=== PATIENT | female | born 1940 | race Caucasian/White ===

== ENCOUNTER 2024-02-18 19:00 | Emergency (ER) | payer MEDICARE, SELFPAY ==
[2024-02-18 19:07] VITALS: BP 121/66; BMI 22.0
[2024-02-18 19:24] LABS: Mean Corpuscular Volume 87.9 fL (81.0-99.0); Nucleated Red Blood Cells % 0 %
[2024-02-18 19:26] LABS: % Eosinophils 6.1 % (0-6); % Immature Granulocytes 0.5 % (0-0.5); % Monocytes 10.7 % (1.7-9.3); % Neutrophils 71.7 % (42.2-75.2); Absolute Basophils 0.1 10^3/uL (0-0.2); Absolute Eosinophils 0.6 10^3/uL (0-0.7); Absolute Immature Granulocytes 0.1 10^3/uL (0-0.05); Absolute Monocytes 1.1 10^3/uL (0.1-0.6); Hematocrit 31.3 % (37.0-47.0); Mean Corp Hgb Conc. 31.9 g/dL (33.0-37.0); Mean Corpuscular Hgb 28.1 pg (27.0-31.0); Mean Platelet Volume 10.3 fL (7.4-10.4); Platelet Count 212 10^3/uL (130-400); Red Blood Cell Count 3.56 10^6/uL (4.20-5.40); Red Cell Dist. Width 16.6 % (11.5-14.5); White Blood Cell Count 9.8 10^3/uL (4.8-10.8)
[2024-02-18 19:45] LABS: ALT (SGPT) < 10 U/L (0-35); AST (SGOT) 19 U/L (14-36); Albumin 4.2 g/dl (3.5-5.0); Alkaline Phosphatase 134 U/L (38-126); Blood Urea Nitrogen 65 mg/dl (7-17); Calcium 7.8 mg/dl (8.4-10.2); Carbon Dioxide 22 mmol/L (22-30); Chloride 92 mmol/L (98-107); Estimated Creatinine Clearance 5 ml/min; Glucose 133 mg/dl (70-99); Lipase 88 U/L (23-300); Potassium 5.2 mmol/L (3.5-5.1); Sodium 130 mmol/L (135-145); Total Bilirubin 0.4 mg/dl (0.2-1.3); Total Protein 6.4 g/dl (6.3-8.2); eGFR 5.41
--- NOTE | 2024-02-18 21:47 | PHANOTE ---
med rec fernando(02/18/24)- patient's spouse does not know the strength of the memantine, but he does give 1 tablet twice a day to spouse. eCW and pharmacy records state that patient is taking 5 mg BID, but spouse cannot confirm.
--- NOTE | 2024-02-19 01:08 | ED.GENMED ---
History of Present Illness
General
Chief Complaint: Abdominal Pain
Source: patient and spouse
Time Seen by Provider: 02/18/24 22:01
History of Present Illness
History of Present Illness:
84-year-old female presents to the emergency room for evaluation of abdominal pain. Patient states that she began having abdominal pain earlier today and started fairly suddenly. Pain located on the right lower abdomen. No nausea or vomiting. No
fever. Patient does not make any urine as she has end-stage renal disease and is on hemodialysis. Her dialysis days are Friday, and Friday. Patient had decreased appetite for dinner.
Past History
Past History
ED Past Medical History: Cancer (Left kidney Sine, ), CHF, GERD, HTN, Hypercholesterolemia, Renal failure (on HD /), Seizures, Psychiatric (Depression), Other (Alzheimer but patient is alert and able to answer questions. Sleep apnea but lost
weight and now gone Renal artery Aneurysm, Pul edema, Diverticulitis) and Other (GI bleeding Iron def. anemia, ); Negative CAD
ED Past Surgical History: Cholecystectomy, , Gynecological (Hysterectomy), Orthopedic (Dennis hip and knee replacements), Urological and Other (Cataracts)
Patient has exhibited threatening behavior?: No
PSI?: No
Social History
Tobacco: Non-smoker
Alcohol: Occasional
Drug: None
Personal:
Living: with family
Employment: Retired
Family History
Family History: Hypertension
Phy Exam
Physical Exam
Physical Exam:
General: Awake, Alert, Oriented X3. No acute distress.
Vitals: unremarkable
Head: Atraumatic
Eyes: Pupils equal, EOMI
Throat: Airway intact, no exudates
Neck: Trachea midline
Lungs: Clear and equal b/l
Heart: Regular rate, no murmurs
Abd: Soft, Nontender, No pulsatile mass
Back: No CVA tenderness to percussion
Neuro: Grossly nonfocal
Skin: Warm, dry, no rash
Extremities: pulses equal b/l, no edema
Course
Orders/Labs/Results
Orders:
Orders
02/18/24 19:09
Electrocardiogram (*1) Urgent
Reason for Study: Chest Pain
EKG- Treatment ONCE
02/18/24 19:17
Complete Blood Count/With Diff Urgent
Comprehensive Metabolic Panel Urgent
Lipase Urgent
02/18/24 22:45
CT Abd/pelvis Wo Iv Cont Urgent
Reason For Exam: rlq pain
Abnormal Lab Results
02/18/24
19:17
RBC 3.56 L 10^6/uL
(4.20-5.40)
Hgb 10.0 L g/dL
(12.0-16.0)
Hct 31.3 L %
(37.0-47.0)
MCHC 31.9 L g/dL
(33.0-37.0)
RDW 16.6 H %
(11.5-14.5)
Abs Immat Gran (auto) 0.1 H 10^3/uL
(0-0.05)
Absolute Neuts (auto) 7.0 H 10^3/uL
(1.4-6.5)
Absolute Lymphs (auto) 1.0 L 10^3/uL
(1.2-3.4)
Absolute Monos (auto) 1.1 H 10^3/uL
(0.1-0.6)
Lymphocytes % 10.0 L %
(20.5-51.1)
Monocytes % 10.7 H %
(1.7-9.3)
Eosinophils % 6.1 H %
(0-6)
Sodium 130 L mmol/L
(135-145)
Potassium 5.2 H mmol/L
(3.5-5.1)
Chloride 92 L mmol/L
(98-107)
BUN 65 H mg/dl
(7-17)
Creatinine 7.0 H* mg/dL
(0.6-1.0)
Glucose 133 H mg/dl
(70-99)
Calcium 7.8 L mg/dl
(8.4-10.2)
Alkaline Phosphatase 134 H U/L
(38-126)
02/18/24 19:17
02/18/24 19:17
Vital Signs
Initial and Last Documented VS:
Initial Vital Signs
Temp Pulse Resp BP Pulse Ox
98.1 F 84 16 121/66 96
02/18/24 19:07 02/18/24 19:07 02/18/24 19:07 02/18/24 19:07 02/18/24 19:07
Last Documented Vital Signs
Temp Pulse Resp BP Pulse Ox
98.1 F 84 16 121/66 96
02/18/24 19:07 02/18/24 19:07 02/18/24 19:07 02/18/24 19:07 02/18/24 22:45
MDM/Problems Addressed
Differential Diagnosis Includes:
Appendicitis, diverticulitis, intestinal colic
MDM/Problems Addressed:
Patient presents after having abdominal pain earlier today. Pain started suddenly. At the time I evaluated the patient her pain had resolved. Her exam is benign. CT obtained IV infiltrated during the imaging send of IV contrast was administered.
However there is no obvious abnormality. Patient reexamined after CAT scan and she continues to have no abdominal pain. At this point patient stable for discharge. Potassium mildly elevated at 5.2 but she is scheduled for dialysis tomorrow.
*Radiology
Radiology exam reviewed: radiology read reviewed
*Pulse Oximetry
Patient hypoxic: no
*EKG
Interpretation: normal
Heart Rate: 83
Rate: normal
Rhythm: sinus
[place]: normal axis
Interval: normal interval
QRS Pattern: normal QRS
Ischemia: no ischemia
*Exotic Dancer Interpretation
Rate: normal
Interpretation: normal
Rhythm: sinus
*Critical Care Note
Total Time (30-74mins, 75-104mins- exclusive of procedures): Not Applicable
ED Attending Note
-
Portions of this chart may have been created with voice recognition software.� Occasional wrong word or��sound alike� substitutions may have occurred due to the inherent limitations of voice recognition software.
Discharge Plan
Departure
Patient Disposition: Home (Routine Discharge)
Date of Disposition: 02/19/24
Time of Disposition: 01:08
Patient with high blood pressure during this ER visit?: No
Condition: Good
Discharge Problem:
Abdominal pain
Instructions: Abdominal Pain
Prescriptions:
No Action
atorvastatin 20 MG tablet
20 mg PO HS
pantoprazole 40 MG tablet,delayed release (DR/EC)
40 mg PO DAILY
acetaminophen [Tylenol Extra Strength] 500 mg Tablet
1,000 mg PO BIDPRN PRN (Reason: mild pain)
mirtazapine 15 mg Tablet
15 mg PO HS
sevelamer carbonate 800 mg Tablet
800 mg PO AC
cholecalciferol (vitamin D3) 50 mcg (2,000 unit) Tablet
50 mcg PO HS
memantine 5 mg Tablet
5 mg PO BID
Patient Comments:
02/18/24: spouse is unsure of strength, last filled on 09/10/23 for 180 tablets
carvedilol 12.5 mg Tablet
12.5 mg PO SUMOWEFR@0800,1800
carvedilol 12.5 mg Tablet
12.5 mg PO TUTHSA@1800
Referrals:
Padmini Thompson MD [Family Provider] -
Activity Restrictions/Additional Instructions:
Your blood work and CAT scan showed no significant abnormalities. Please follow your primary care doctor. Return for any concerns.
Interventions
Interventions:
*Risk Screen - Suicide Last Done: 02/18/24 19:07
*General Assessment Last Done: 02/18/24 22:45
*Neglect/Abuse Screening Last Done: 02/18/24 19:07
ED- Fall Risk Assessment Last Done: 02/18/24 19:07
*ED COVID-19 Vaccine History Last Done: 02/18/24 22:45
YF-Ibsxwc-Vbkxqrlcwu Assessment Last Done: 02/18/24 22:45
Discharge Date and Time
Print Language: MALDIVIAN
[2024-02-19 01:14] VITALS: BP 118/68
== END 2024-02-19 01:18 | disposition home or self-care (01) ==
LOC: EMR 19:00
PROVIDERS: Emergency Medicine; EMERGENCY PHYSICIAN Emergency Medicine; FAMILY PHYSICIAN Family Medicine
DX: R10.9 Unspecified abdominal pain (principal)
CPT/HCPCS: 99285; 74176; 80053; 83690; 85025; 93005

== ENCOUNTER 2024-02-22 21:41 | Observation (INO) | payer MEDICARE, SELFPAY ==
[2024-02-22 18:30] VITALS: BP 155/91
--- NOTE | 2024-02-22 18:58 | ED.GENMED ---
History of Present Illness
General
Chief Complaint: Rectal Bleeding
Source: patient
Exam Limitations: none
Time Seen by Provider: 02/22/24 18:40
Nursing documentation reviewed up to this point in time: agreed with
History of Present Illness
History of Present Illness:
Pleasant 84-year-old female that presents with bleeding per rectum. She states that this afternoon, the bleeding started. Patient states that it has been coming out quickly with clotting present. Denies any abdominal pain. Denies fever, chills,
nausea or vomiting. Patient does have a history of Alzheimer's disease but thus far has been a great historian.
Past History
Past History
ED Past Medical History: Cancer (Left kidney Sine, ), CHF, GERD, HTN, Hypercholesterolemia, Renal failure (on HD //), Seizures, Psychiatric (Depression), Other (Alzheimer but patient is alert and able to answer questions. Sleep apnea but lost
weight and now gone Renal artery Aneurysm, Pul edema, Diverticulitis) and Other (GI bleeding Iron def. anemia, ); Negative CAD
ED Past Surgical History: Cholecystectomy, , Gynecological (Hysterectomy), Orthopedic (Dennis hip and knee replacements), Urological and Other (Cataracts)
Patient has exhibited threatening behavior?: No
PSI?: No
Social History
Tobacco: Non-smoker
Alcohol: Occasional
Drug: None
Personal:
Living: with family
Employment: Retired
Family History
Family History: Hypertension
Phy Exam
General Physical Exam
General Presentation: well appearing and no apparent distress
General Skin: warm and dry
General Habitus: normal
General Mental: alert
General Hydration: appears well hydrated
ENT Exam
ENT Exam: EOMI, pharynx normal, neck supple and normocephalic
Eye Exam
Eye Exam: PERRL, cornea clear and conjunctiva normal
Cardiovascular Exam
Cardiovascular Exam: regular rate/rhythm, no edema, no murmur and normal peripheral pulses
Pulmonary Exam
Pulmonary Exam: lungs clear, no respiratory distress, no rales, no crackles, no rhonchi, no stridor, no wheezing and no cough
Gastrointestinal Exam
Gastrointestinal Exam: normal bowel sounds, non tender, soft and non distended
Rectal Exam: soft stool
Stool: currant jelly and maroon
Guaiac Status: grossly bloody - positive and positive
Neurological Exam
Neurological Exam: alert
Musculoskeletal Exam
Musculoskeletal Exam: full ROM and no edema
Skin Exam
Skin Exam: normal color, warm/dry, no rash and no petechia
Psychiatric Exam
Psychiatric Exam: normal mood/affect
Course
Orders/Labs/Results
Orders:
Orders
02/22/24 18:54
Cardiac Monitoring- Treatment ONCE
Vital Signs- Treatment ONCE
Frequency: Hourly
Octreotide [Sandostatin] 50 mcg IV NOW STA
Pantoprazole 80 mg/100 ml Nss [Protonix] 80 mg in 100 ml IV NOW
Pantoprazole [Protonix IV] 80 mg IV NOW STA
02/22/24 18:55
IV Insert/Care/Rem.- Treatment PRN
02/22/24 18:57
Electrocardiogram (*1) Stat
Reason for Study: Other
Other Reason for Exam: GI Bleed
EKG- Treatment ONCE
02/22/24 19:21
Type And Crossmatch Urgent
Comprehensive Metabolic Panel Urgent
Lipase Urgent
PTT Urgent
Prothrombin Time Urgent
02/22/24 20:19
Complete Blood Count/With Diff Urgent
02/22/24 21:03
Admit/Transfer Patient As Directed
Co-Sign Provider:
Level of Care: Observation services
Assign to:: Medical/Surgical
Physician / Group: Getachew
Diagnosis: GI bleed
Abnormal Lab Results
02/22/24 02/22/24
19:21 20:19
RBC 3.08 L 10^6/uL
(4.20-5.40)
Hgb 8.7 L g/dL
(12.0-16.0)
Hct 27.4 L %
(37.0-47.0)
MCHC 31.8 L g/dL
(33.0-37.0)
RDW 15.9 H %
(11.5-14.5)
Absolute Lymphs (auto) 0.9 L 10^3/uL
(1.2-3.4)
Absolute Monos (auto) 0.9 H 10^3/uL
(0.1-0.6)
Lymphocytes % 12.8 L %
(20.5-51.1)
Monocytes % 13.0 H %
(1.7-9.3)
Sodium 128 L mmol/L
(135-145)
Chloride 90 L mmol/L
(98-107)
BUN 39 H mg/dl
(7-17)
Creatinine 5.0 H* mg/dL
(0.6-1.0)
Calcium 8.3 L mg/dl
(8.4-10.2)
Total Protein 5.9 L g/dl
(6.3-8.2)
02/22/24 20:19
02/22/24 19:21
Vital Signs
Initial and Last Documented VS:
Initial Vital Signs
Temp Pulse Resp BP
97.7 F 81 18 155/91
02/22/24 18:30 02/22/24 18:30 02/22/24 18:30 02/22/24 18:30
Last Documented Vital Signs
Temp Pulse Resp BP Pulse Ox
97.7 F 81 18 144/98 100
02/22/24 18:30 02/22/24 18:30 02/22/24 18:30 02/22/24 20:00 02/22/24 20:45
MDM/Problems Addressed
Differential Diagnosis Includes:
Upper GI bleed, lower GI bleed, hemorrhoid
MDM/Problems Addressed:
84-year-old female with spontaneous rectal bleeding. On rectal exam there were clots which were heme positive.
Chronic conditions affecting care:
Chronic kidney disease, dementia, memory loss, epilepsy, sleep apnea though she refuses CPAP, high blood pressure hyperlipidemia, GI bleed, hemorrhoids, renal failure, iron deficiency anemia
Chronic conditions affecting care: DM, HTN and Kidney disease (Dialysis Friday. Dr. Lopez)
*Critical Care Note
Total Time (30-74mins, 75-104mins- exclusive of procedures): 35
comment:
Critical care statement: A total of 35 minutes of critical care time was provided for this patient. This time is separate from time utilized to perform the aforementioned documented procedures. Aggregate critical care time includes only time
during which I was engaged in work directly related to the patient's care, as described above, whether at the bedside or elsewhere in the Emergency Department.
Data Reviewed
Review of Other/Old Records Reveals: Labs and Records
Source: patient, records and family
Patient Management
Social determinants of health affecting care: Living situation and Strong social support
Discussion with other providers: Hospitalist and Machine Shop Worker ([place] texted gastroenterology so they are aware)
Escalation/DeEscalation of care consider admission/obs:
Patient to be admitted to the hospital.
Update Note
Update Note:
Blood consent signed by patient and and is on the chart.
Hemoglobin 8.7. Bleeding seem to have slowed down. Patient to be admitted to the hospitalist service.
ED Attending Note
-
Portions of this chart may have been created with voice recognition software.� Occasional wrong word or��sound alike� substitutions may have occurred due to the inherent limitations of voice recognition software.
Discharge Plan
Departure
Patient Disposition: Admit
Date of Disposition: 02/22/24
Time of Disposition: 20:51
Admit to: Telemetry
Presentation/result/management discussed w/ accepting MD/DO: Hospitalist
Discharge Problem:
Rectal bleeding, ESRD on hemodialysis, Anemia of chronic disease, GERD (gastroesophageal reflux disease)
Prescriptions:
No Action
atorvastatin 20 MG tablet
20 mg PO HS
pantoprazole 40 MG tablet,delayed release (DR/EC)
40 mg PO DAILY
acetaminophen [Tylenol Extra Strength] 500 mg Tablet
1,000 mg PO BIDPRN PRN (Reason: mild pain)
mirtazapine 15 mg Tablet
15 mg PO HS
sevelamer carbonate 800 mg Tablet
800 mg PO AC
cholecalciferol (vitamin D3) 50 mcg (2,000 unit) Tablet
50 mcg PO HS
memantine 5 mg Tablet
5 mg PO BID
Patient Comments:
02/18/24: spouse is unsure of strength, last filled on 09/10/23 for 180 tablets
carvedilol 12.5 mg Tablet
12.5 mg PO SUMOWEFR@0800,1800
carvedilol 12.5 mg Tablet
12.5 mg PO TUTHSA@1800
Referrals:
Padmini Thompson MD [Family Provider] -
Interventions
Interventions:
*Risk Screen - Suicide Last Done: 02/22/24 20:00
*General Assessment Last Done: 02/22/24 20:00
*Neglect/Abuse Screening Last Done: 02/22/24 20:00
*ED COVID-19 Vaccine History Last Done: 02/22/24 20:00
JW-Udzetl-Ekwtqrikhk Assessment Last Done: 02/22/24 20:16
ED- Cardiac Assessment Last Done: 02/22/24 20:00
ED- Pulmonary Assessment Last Done: 02/22/24 20:16
Discharge Date and Time
Print Language: PALAUAN
[2024-02-22] MEDS: SANDOSTATIN 50 MCG IV (19:30)
[2024-02-22] MEDS: PROTONIX IV 80 MG IV (19:34)
[2024-02-22] MEDS: PROTONIX 100 IV (19:34)
[2024-02-22 19:41] LABS: INR 1.06; PT 13.6 Sec (11.4-14.6)
[2024-02-22 19:42] LABS: APTT 31.5 Sec (23.4-35.0)
[2024-02-22 19:45] LABS: ALT (SGPT) < 10 U/L (0-35); AST (SGOT) 20 U/L (14-36); Albumin 3.8 g/dl (3.5-5.0); Alkaline Phosphatase 96 U/L (38-126); Blood Urea Nitrogen 39 mg/dl (7-17); Calcium 8.3 mg/dl (8.4-10.2); Carbon Dioxide 27 mmol/L (22-30); Chloride 90 mmol/L (98-107); Glucose 92 mg/dl (70-99); Lipase 42 U/L (23-300); Potassium 4.9 mmol/L (3.5-5.1); Sodium 128 mmol/L (135-145); Total Bilirubin 0.8 mg/dl (0.2-1.3); Total Protein 5.9 g/dl (6.3-8.2)
[2024-02-22 20:00] VITALS: BP 144/98
[2024-02-22 20:32] LABS: % Basophils 1.3 % (0-2); % Immature Granulocytes 0.4 % (0-0.5); % Lymphocytes 12.8 % (20.5-51.1); % Neutrophils 66.5 % (42.2-75.2); Absolute Basophils 0.1 10^3/uL (0-0.2); Absolute Eosinophils 0.4 10^3/uL (0-0.7); Absolute Lymphocytes 0.9 10^3/uL (1.2-3.4); Absolute Monocytes 0.9 10^3/uL (0.1-0.6); Absolute Neutrophils 4.8 10^3/uL (1.4-6.5); Hematocrit 27.4 % (37.0-47.0); Hemoglobin 8.7 g/dL (12.0-16.0); Mean Corp Hgb Conc. 31.8 g/dL (33.0-37.0); Mean Corpuscular Hgb 28.2 pg (27.0-31.0); Mean Platelet Volume 10.2 fL (7.4-10.4); Nucleated Red Blood Cells % 0 %; Platelet Count 236 10^3/uL (130-400); Red Blood Cell Count 3.08 10^6/uL (4.20-5.40); Red Cell Dist. Width 15.9 % (11.5-14.5); White Blood Cell Count 7.2 10^3/uL (4.8-10.8)
[2024-02-22 21:00] VITALS: BP 162/85
--- NOTE | 2024-02-22 21:29 | HPS.HSE ---
Family Physician
-
Family Physician: Padmini Thompson
Chief Complaint
-
Pain with fresh rectal bleed
History of Present Illness
84-year-old female with multiple comorbidities including end-stage renal disease on hemodialysis, diverticulosis and diverticulitis, dyslipidemia, hypertension, dementia who lives at home with her , presented to the hospital after she had 3
episodes of the pain was fresh rectal bleed started earlier this afternoon, denies any abdominal pain or any chest pain or shortness of breath or any changes stool color in the last few day, no nausea or hematemesis. Denies taking any NSAIDs and
she is not on any anticoagulant or antiplatelet.
She had episode like this many years ago attributed to diabetic.
Denies any recent travel or antibiotic intake.
Baseline hemoglobin around 9-10 and today is 8.7, she is awake, alert and oriented x 3 hold appropriate conversation and her at the bedside, patient able to provide detailed information.
Medical History
Past Medical History
Past Medical History: Reports Other
Additional Past Medical History:
Past medical history reviewed:
End-stage renal disease on hemodialysis, Friday,
Status post left-sided nephrectomy and right kidney was not well developed according to the hospital
Dementia
Hypertension
Diverticulosis and diverticular bleed in the past
Diverticulitis
History of Schatzki's ring with dilatation
Chronic diastolic congestive heart failure
T4 compression fracture
History of melanoma
Anemia of chronic kidney disease
Surgical history:
Cholecystectomy
Hemorrhoidectomy
Bilateral hip replacement
Bilateral knee replacement
Breast reduction
Left robotic nephrectomy for renal cell carcinoma
Wide excision of melanoma of right leg right upper extremity fistulogram right upper extremity AV fistula and graft placement
Left upper extremity AV graft placement
Social history: Lives at home with her , no smoking alcohol use
Family history: Reviewed and noncontributory
Past Surgical History: Reports Other
Social History
Unable to obtain full social history at this time due to: Other
Family History
Family History: Other
Allergies / Home Medications
Allergies reflects when Allergies were last updated in [facility].
Home Medications with original date entered in [facility]
Allergy/Medication List:
Allergies
Allergy/AdvReac Type Severity Reaction Status Date / Time
cephalexin [Cephalexin] Allergy Unknown - Verified 02/18/24 19:06
tolerated
periop
cefazolin
06/2020
Quinolones Allergy SEIZURE Verified 02/18/24 19:06
sulfamethoxazole Allergy Itching Verified 02/18/24 19:06
trimethoprim Allergy Unknown Verified 02/18/24 19:06
Home Medications
atorvastatin 20 mg tablet 20 mg PO HS High cholesterol 08/19/19
pantoprazole 40 mg tablet,delayed release 40 mg PO DAILY Gastrointestinal issue 04/17/20
acetaminophen 500 mg tablet (Tylenol Extra Strength) 1,000 mg PO BIDPRN PRN mild pain 02/18/24
carvedilol 12.5 mg tablet 12.5 mg PO SUMOWEFR@0800,1800 02/18/24
carvedilol 12.5 mg tablet 12.5 mg PO TUTHSA@1800 02/18/24
cholecalciferol (vitamin D3) 50 mcg (2,000 unit) tablet 50 mcg PO HS 02/18/24
memantine 5 mg tablet 5 mg PO BID 02/18/24
mirtazapine 15 mg tablet 15 mg PO HS 02/18/24
sevelamer carbonate 800 mg tablet 800 mg PO AC 02/18/24
Review of Systems
-
A 12 point ROS was completed and negative except as noted: Yes
Physical Exam
Vital Signs
Vital Signs
Temp Pulse Resp BP Pulse Ox
97.7 F 81 18 162/85 100
02/22/24 18:30 02/22/24 18:30 02/22/24 18:30 02/22/24 21:00 02/22/24 21:00
Physical exam:
General: Awake, alert and oriented x3, pale looking, mild degree of cognitive decline appreciated not in distress and holds appropriate conversation.
HEENT: No active discharge, ecchymosis or bruising, moist lips, tongue and mucous membrane.
Eyes: No discharge or red conjunctiva, no nystagmus, pupils are reactive and equal
Neck:Supple, no JVD no bruit no goiter.
Respiratory: Normal AP contour and diameter, normal chest wall movement, normal respiratory effort, no respiratory distress,
Lungs: Good air entry bilaterally, no wheezing or rhonchi, no rales or crackles
Heart: S1, S2 regular, normal rate, no added sound.
Gastrointestinal: AV fistula next upper extremities appreciated positive bowel sounds, soft, nontender, no guarding or rigidity or organomegaly
Musculoskeletal: , no chest wall abnormality or tenderness. All joints and extremities have good range of motion, no muscle tenderness or any joint swelling or tenderness.
Extremities: No pitting edema, good peripheral pulses, good range of motion
Skin: Warm and dry, no ulceration, normal color.
Neurological: Awake, alert and oriented x3, speech clear and comprehensive, good muscle tone, normal sensory and motor function
Psychiatric: Normal mood, normal thought and judgment, normal affect,
Physical Exam
General: Other
Laboratory Results
-
02/22/24 20:19
02/22/24 19:21
Laboratory Results
PT 13.6 Sec (11.4-14.6) 02/22/24 19:21
INR 1.06 02/22/24 19:21
APTT 31.5 Sec (23.4-35.0) 02/22/24 19:21
Total Bilirubin 0.8 mg/dl (0.2-1.3) 02/22/24 19:21
AST 20 U/L (14-36) 02/22/24 19:21
ALT < 10 U/L (0-35) 02/22/24 19:21
Alkaline Phosphatase 96 U/L (38-126) 02/22/24 19:21
Lipase 42 U/L (23-300) 02/22/24 19:21
Data Reviewed
-
Lab Data: Labs Reviewed by me, Discussed with Patient and Discussed with Family
Old Records: Reviewed
Impression/Plan
-
IMPRESSION:
84-year-old female with history of diverticulosis diverticular bleed in the past presented to the hospital complaining of fresh painless rectal bleed started earlier this afternoon at home, she had 3 episodes.
Concerning for another episode of diverticular bleed.
Fresh rectal bleed likely diverticular bleed, doubted be upper GI
Painless rectal bleed
Acute on chronic anemia, baseline hemoglobin around 9-10 today's 8.7
End-stage renal disease on hemodialysis
Hyponatremia
Hypertension
Dementia
History of renal cell carcinoma status post right nephrectomy
PLAN:
Type and screen of fluids already ordered by the ER
No indication of octreotide drip and PPI IV, will continue her home dose of Protonix
Monitor vital signs closely
Recheck hemoglobin every 8 hours including later this evening.
GI consult
Start patient on a full liquid diet as she is stable
Continue home medication
Nephrology consult she is on dialysis Friday, and Saturdays
Continue carvedilol
Memantine D
Mirtazapine
All discussed with the patient and the in detail expressed understanding
CODE STATUS full code
DVT prophylaxis SCD
[2024-02-22 22:00] VITALS: BP 163/79
[2024-02-22 22:52] VITALS: BP 145/85; BMI 23.6
[2024-02-22] MEDS: LIPITOR 20 MG PO (23:42)
[2024-02-22] MEDS: REMERON 15 MG PO (23:42)
[2024-02-23 03:08] LABS: Hematocrit 28.7 % (37.0-47.0)
--- NOTE | 2024-02-23 03:28 | PTCARENOTE ---
Around 2:30 am pt rang for the nurse and was in the bathroom moving her bowels. RN noted a sizeable amount of bright red blood in the toilet along with a small amount of stool. PT was able to get up and get back in bed with assistance and did not
feel dizzy, faint or light headed. [employer] was contacted and told about the situation. Shortly after, an H & H was due and drawn and two IV lines were placed in the patient's left arm. Pt was hooked back up the protonix drip and is now resting
comfortably. PT's hgb resulted at 9.0. Will continue to monitor for any more bleeding and/or symptoms.
[2024-02-23 06:14] LABS: Hemoglobin 8.9 g/dL (12.0-16.0); Mean Corp Hgb Conc. 31.8 g/dL (33.0-37.0); Mean Corpuscular Hgb 28.3 pg (27.0-31.0); Mean Corpuscular Volume 89.2 fL (81.0-99.0); Mean Platelet Volume 10.2 fL (7.4-10.4); Platelet Count 284 10^3/uL (130-400); Red Blood Cell Count 3.14 10^6/uL (4.20-5.40); Red Cell Dist. Width 15.9 % (11.5-14.5); White Blood Cell Count 9.1 10^3/uL (4.8-10.8)
[2024-02-23 07:13] LABS: Blood Urea Nitrogen 44 mg/dl (7-17); Calcium 8.2 mg/dl (8.4-10.2); Carbon Dioxide 24 mmol/L (22-30); Chloride 92 mmol/L (98-107); Estimated Creatinine Clearance 5 ml/min; Glucose 91 mg/dl (70-99); Potassium 5.9 mmol/L (3.5-5.1); Sodium 128 mmol/L (135-145); eGFR 6.78
--- NOTE | 2024-02-23 07:30 | PTCARENOTE ---
creat 5.8, dialysis pt, Dr Chilel notified
[2024-02-23 07:58] VITALS: BP 127/72
[2024-02-23] MEDS: COREG 12.5 MG PO ×2 (08:11→17:47)
[2024-02-23] MEDS: PROTONIX 40 MG PO (08:12)
[2024-02-23] MEDS: NAMENDA 5 MG PO ×2 (08:12→20:08)
--- NOTE | 2024-02-23 09:30 | W.CON.NEPH ---
Consultation
-
Date/Time Consultation Requested: 02/23/24
Date/Time Consultation Performed: 02/23/24
Requesting Provider: Joaquina
Performing Provider: Mckenna
Reason for Consultation: ESRD
Medical History
-
Chief Complaint: ESRD
History of Present Illness:
84-year-old female with multiple comorbidities including end-stage renal disease on hemodialysis (TTS at [facility]), diverticulosis and diverticulitis, dyslipidemia, hypertension (maintained on coreg), hyperphosphatemia (maintained on
sevelamer), dementia who lives at home with her , presented to the hospital after she had 3 episodes of the pain was fresh rectal bleed started earlier this afternoon, denies any abdominal pain or any chest pain or shortness of breath or any
changes stool color in the last few day, no nausea or hematemesis. Denies taking any NSAIDs and she is not on any anticoagulant or antiplatelet. On presentation her hemoglobin was 8.7
Past Medical History
ESRD
Hypertension
Hyperphosphatemia
Dementia
Hyperlipidemia
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
Atrophic right kidney.
Right renal artery stenosis.
. Multiple AV access procedures with AV graft. now with permanent catheter
Hypertension.
Secondary hyperparathyroidism.
Dementia.
GI bleed.
GERD.
Depression.
Osteopenia.
Bilateral hip replacement.
Bilateral knee replacement.
section.
Cholecystectomy.
Sleep apnea.
Social History
No tobacco or alcohol
Family History
No chronic kidney disease
Allergies / Home Medications
Allergy/AdvReac Type Severity Reaction Status Date / Time
cephalexin [Cephalexin] Allergy Unknown - Verified 02/18/24 19:06
tolerated
periop
cefazolin
06/2020
Quinolones Allergy SEIZURE Verified 02/18/24 19:06
sulfamethoxazole Allergy Itching Verified 02/18/24 19:06
trimethoprim Allergy Unknown Verified 02/18/24 19:06
�Medication �Instructions �Recorded �Confirmed �Type
atorvastatin 20 mg tablet 20 mg PO HS High cholesterol 08/19/19 02/22/24 History
pantoprazole 40 mg tablet,delayed 40 mg PO DAILY Gastrointestinal 04/17/20 02/22/24 History
release issue
acetaminophen 500 mg tablet 1,000 mg PO BIDPRN PRN mild pain 02/18/24 02/22/24 History
(Tylenol Extra Strength)
carvedilol 12.5 mg tablet 12.5 mg PO SUMOWEFR@0800,1800 02/18/24 02/22/24 History
Blood Pressure
carvedilol 12.5 mg tablet 12.5 mg PO TUTHSA@1800 Blood 02/18/24 02/22/24 History
Pressure
cholecalciferol (vitamin D3) 50 50 mcg PO HS Supplement 02/18/24 02/22/24 History
mcg (2,000 unit) tablet
memantine 5 mg tablet 5 mg PO BID Neurological Condition 02/18/24 02/22/24 History
mirtazapine 15 mg tablet 15 mg PO HS Mental Health/Anxiety 02/18/24 02/22/24 History
sevelamer carbonate 800 mg tablet 800 mg PO AC Kidney Disease 02/18/24 02/22/24 History
Review of Systems
-
History Source: Patient
All other systems: Negative unless noted
Constitutional: Fatigue
Respiratory: Other (Chronic shortness of breath on oxygen)
Cardiac: No Symptoms
Abdomen/GI: Bloody Stools
: Other (Very little urine output at baseline)
Musculoskeletal: No Symptoms
Skin: No Symptoms
Neurological: No Symptoms
Endocrine: No Symptoms
Hematologic/Lymphatic: No Symptoms
Physical Exam
Vital Signs
Vital Signs
Temp Pulse Resp BP Pulse Ox
97.7 F 73 17 127/72 100
02/23/24 07:58 02/23/24 08:11 02/23/24 07:58 02/23/24 08:11 02/23/24 07:58
Lab Results
02/23/24 06:03
02/23/24 06:03
WBC 9.1 10^3/uL (4.8-10.8) 02/23/24 06:03
RBC 3.14 10^6/uL (4.20-5.40) L 02/23/24 06:03
Hgb 8.9 g/dL (12.0-16.0) L 02/23/24 06:03
Hct 28.0 % (37.0-47.0) L 02/23/24 06:03
Plt Count 284 10^3/uL (130-400) D 02/23/24 06:03
Sodium 128 mmol/L (135-145) L 02/23/24 06:03
Potassium 5.9 mmol/L (3.5-5.1) H 02/23/24 06:03
Chloride 92 mmol/L (98-107) L 02/23/24 06:03
Carbon Dioxide 24 mmol/L (22-30) 02/23/24 06:03
BUN 44 mg/dl (7-17) H 02/23/24 06:03
Creatinine 5.8 mg/dL (0.6-1.0) H* 02/23/24 06:03
eGFR 6.78 02/23/24 06:03
Glucose 91 mg/dl (70-99) 02/23/24 06:03
Calcium 8.2 mg/dl (8.4-10.2) L 02/23/24 06:03
Albumin 3.8 g/dl (3.5-5.0) 02/22/24 19:21
Physical Exam
General: AOx3, Nontoxic , NAD
HEENT: PERRL, EOMI, Anicteric, Conjunctivae Clear, Ear/Nose Intact, Hearing Normal, Oropharynx Clear/Moist, Dentition Intact, Facial Symmetry, Neck Supple, Neck: Trachea Midline, No JVD and No Thyromegaly, no Bruits
Respiratory: Clear to auscultation bilaterally with normal lung exersion
Cardiac: S1/S2 and Regular Rate/Rhythm
Breast: Deferred by me
Abdomen: Soft, Nontender, Nondistended, Normal Bowel Sounds and No Hepatosplenomegaly
Rectal: Deferred by Provider
Genito-urinary: No Costovertebral Tenderness
Extremities: No Clubbing, No Cyanosis and No Edema
Skin: No Rash or open lesions
Neuro: Nonfocal/Grossly Intact, CN II-XII (Intact) and Strength (Musculoskeletal exam 5 out of 5 both upper and lower extremities)
Hematologic/Lymphatic: No Cervical Lymphadenopathy, No Submandibular Lymphadenopathy and No Supraclavicular Lymphadenopathy
Psych: Mood/afflect pleasant, Insight/judgement good and Appropriate
Vascular: plus 1 pedal and radial pulses, old RUE AVF : down
Vascular Access: CVC (Left sided)
Data Reviewed
-
CT Scan: Report Reviewed by me (negative findings for acute blood loss)
Medical Tests (Nuc Med, Echo etc): Other (Reviewed EKG personally 65 bpm normal sinus)
Labs: Labs Reviewed by me (BMP CBC)
Old Records: Reviewed (Reviewed old consult in electronic medical record for end-stage renal disease consult 03/13/2023)
Assessment/Plan
-
Impression:
ESRD TTS
Hyperkalemia
Rectal bleed
Anemia
Hyperphosphatemia
Secondary hyperparathyroid
Hypertension
Dementia
History of renal cell carcinoma status post right nephrectomy
History of multiple joint replacements
Hyponatremia
Plan:
-We will provide Lokelma for hyperkalemia today
-Dialysis will be ordered for tomorrow
-LARA will be escalated for anemia, blood transfusions will be offered as needed
-Fluid restriction for hyponatremia in setting of ESRD
-We will initiate sevelamer for hyperphosphatemia once solid diet implemented
[2024-02-23] MEDS: RENVELA PO ×2 (09:36→16:46)
--- NOTE | 2024-02-23 09:53 | CON.GI ---
Addendum entered and electronically signed by Fransico Jane MD 02/23/24 19:07:
I saw and examined the patient.
The PA's note was reviewed and I agree with the note.
Comment:
The patient is a 84 year old female with multiple co-morbidities as listed below p/w rectal bleeding. She has h/o diverticular bleed 2020.
Impression / Rec:
1. Rectal bleeding - diverticular bleeding vs hemorrhoidal. Pt had 1 episode of rectal bleeding overnight and has not had any further episodes since. Hgb on admission was 8.7 and has been stable, although dropped to 7.9 today. Colonoscopy in
2020 showed diverticulosis in the sigmoid, descending and ascending colon and 2 small adenomatous polyps. Would hold off on endo eval for now, follow clinically. Agree with bleeding scan if active hemorrhage occurs.
Addendum entered and electronically signed by ELVIS Chilel 02/23/24 14:10:
saw patient at 1408 for BM, loose brown foul smelling. Had episode of dark maroon blood earlier in the day. Hgb now 7.9 down from 8.9. Patient without any abd pain, SOB, CP or dizziness.
Original Note:
Consultation
-
Date/Time Consultation Requested: 02/22/242123
Date/Time Consultation Performed: 02/23/24 0950
Requesting Provider: Dr. Chilel
Performing Provider: Dr. Jane/ELVIS Holt
Reason for Consultation: rectal bleeding
Medical History
Chief Complaint / HPI
Chief Complaint: rectal bleeding
History of Present Illness:
84-year-old female with past medical history of dementia, end-stage renal disease on HD Tuesdays, and Saturdays. History of diverticulosis, dyslipidemia, hypertension, history of Schatzki's ring with dilatation, CHF, T4 compression
fracture, seizure, renal artery aneurysm, pulmonary edema, history of melanoma and anemia of chronic disease, prior history of diverticular bleed 2020 who presents to the emergency room with rectal bleeding. Patient is a poor historian given her
history of dementia. She does state that she has been having rectal bleeding for about 1 day. I did discuss with her RN at bedside who states that she had 1 episode overnight and has not had any further episodes since. This was bright red blood
per rectum. The patient states that her appetite has been poor. She denies any abdominal pain. It appears that the patient was in the emergency room on 02/19/2024 for abdominal discomfort. The patient currently denies any abdominal discomfort at
this time. She denies any fevers, chills, nausea, vomiting, melena, dysphagia or dyne aphasia. She states that her appetites been poor over the past couple days. She denies any specific weight loss. She is currently tolerating clear liquid diet
this time. Her hemoglobin has been stable since arrival. Currently is 8.9 from 8.7 on arrival. Her vital signs have been stable. Patient's last imaging was performed on 02/19/2024 CT of the abdomen pelvis with IV contrast. This will be detailed
below.
Past Medical History
Past Medical History: CHF, HTN, Hypercholesterolemia, Renal Failure (On HD Friday), Seizures and Other (Dementia, diverticulosis, Schatzki's ring, T4 compression fracture, pulmonary edema, melanoma, anemia chronic disease)
Past Surgical History: Other (Cholecystectomy, , hysterectomy, breast reduction, bilateral total knee replacement, left nephrectomy, right arm fistula, left arm fistula)
Social History
Tobacco: Non-Smoker
Alcohol: None
Drug: None
Personal:
Living: With Family
Family History
Family History: Other
Allergies / Home Medications
Allergy/AdvReac Type Severity Reaction Status Date / Time
cephalexin [Cephalexin] Allergy Unknown - Verified 02/18/24 19:06
tolerated
periop
cefazolin
06/2020
Quinolones Allergy SEIZURE Verified 02/18/24 19:06
sulfamethoxazole Allergy Itching Verified 02/18/24 19:06
trimethoprim Allergy Unknown Verified 02/18/24 19:06
�Medication �Instructions �Recorded
atorvastatin 20 mg tablet 20 mg PO HS High cholesterol 08/19/19
pantoprazole 40 mg tablet,delayed 40 mg PO DAILY Gastrointestinal 04/17/20
release issue
acetaminophen 500 mg tablet 1,000 mg PO BIDPRN PRN mild pain 02/18/24
(Tylenol Extra Strength)
carvedilol 12.5 mg tablet 12.5 mg PO SUMOWEFR@0800,1800 02/18/24
Blood Pressure
carvedilol 12.5 mg tablet 12.5 mg PO TUTHSA@1800 Blood 02/18/24
Pressure
cholecalciferol (vitamin D3) 50 50 mcg PO HS Supplement 02/18/24
mcg (2,000 unit) tablet
memantine 5 mg tablet 5 mg PO BID Neurological Condition 02/18/24
mirtazapine 15 mg tablet 15 mg PO HS Mental Health/Anxiety 02/18/24
sevelamer carbonate 800 mg tablet 800 mg PO AC Kidney Disease 02/18/24
Review of Systems
-
All other systems: A 12 pt ROS was Negative except as stated above in HPI
Vital Signs
Temp Pulse Resp BP Pulse Ox
97.7 F 73 17 127/72 100
02/23/24 07:58 02/23/24 08:11 02/23/24 07:58 02/23/24 08:11 02/23/24 07:58
Physical Exam
Exam
General: No Apparent Distress
HEENT: Anicteric
Respiratory: Clear (Anterior)
Cardiac: Regular Rhythm
GI: Soft, Non Tender, Non Distended and Normal Bowel Sounds
Skin: Warm and Dry
Neuro: Awake, Alert and Oriented (To person only. States she lives in [place], Cannot tell me the year or month, knows she is in a hospital)
Psych: Calm
Results
WBC 9.1 10^3/uL (4.8-10.8) 02/23/24 06:03
Hgb 8.9 g/dL (12.0-16.0) L 02/23/24 06:03
Hct 28.0 % (37.0-47.0) L 02/23/24 06:03
MCV 89.2 fL (81.0-99.0) 02/23/24 06:03
Plt Count 284 10^3/uL (130-400) D 02/23/24 06:03
Absolute Neuts (auto) 4.8 10^3/uL (1.4-6.5) 02/22/24 20:19
PT 13.6 Sec (11.4-14.6) 02/22/24 19:21
INR 1.06 02/22/24 19:21
APTT 31.5 Sec (23.4-35.0) 02/22/24 19:21
Sodium 128 mmol/L (135-145) L 02/23/24 06:03
Potassium 5.9 mmol/L (3.5-5.1) H 02/23/24 06:03
Chloride 92 mmol/L (98-107) L 02/23/24 06:03
Carbon Dioxide 24 mmol/L (22-30) 02/23/24 06:03
BUN 44 mg/dl (7-17) H 02/23/24 06:03
Creatinine 5.8 mg/dL (0.6-1.0) H* 02/23/24 06:03
Calcium 8.2 mg/dl (8.4-10.2) L 02/23/24 06:03
Total Bilirubin 0.8 mg/dl (0.2-1.3) 02/22/24 19:21
AST 20 U/L (14-36) 02/22/24 19:21
ALT < 10 U/L (0-35) 02/22/24 19:21
Alkaline Phosphatase 96 U/L (38-126) 02/22/24 19:21
Lipase 42 U/L (23-300) 02/22/24 19:21
Diagnostic Image Results:
CT Abd/Pelvis with IV contrast 02/18/24:
1. No CT abnormalities identified to explain the patient's symptoms .
2. No evidence of intestinal obstruction, bowel inflammatory process, nephrolithiasis, hydronephrosis, cholecystitis, or abscess formation.
3. Small bilateral pleural effusions. Bibasilar subsegmental atelectasis. Suspected rounded atelectasis at the left lung base.
4. Severe atrophy of the right kidney. Left kidney is not visualized.
Findings are in agreement with the [facility] radiology report.
Electronically signed by Casey Maria MD, 02/19/2024 8:38 AM
[facility] Dose Report: Up-to-date CT equipment and radiation dose reduction techniques were employed. CTDIvol: 8.4 mGy. DLP: 440 mGy-cm.
Dictated By: Candace TAYLOR,Casey Ludwig.
Dictated Date & Time: 02/19/24824
Prior GI Procedures:
EGD: 2017 Dr. Gambino; low-grade narrowing Schatzki's ring dilated to 18mm, multiple gastric polyps, normal duodenum.
2013 Dr. Gambino; low-grade narrowing Schatzki's ring dilated to 18 mm, hiatal hernia, multiple gastric polyps, normal duodenum
Colonoscopy: 05/22/2021; Dr. Gambino;Diverticulosis in the sigmoid, descending and ascending colon. Two 5 mm polyps in the transverse colon.
Colonoscopy 2014; Dr. Gambino; Diverticulosis in the entire colon
Colonoscopy:
Assessment / Plan
-
84-year-old female with past medical history of dementia, end-stage renal disease on HD Tuesdays, and Saturdays. History of diverticulosis, dyslipidemia, hypertension, history of Schatzki's ring with dilatation, CHF, T4 compression
fracture, seizure, renal artery aneurysm, pulmonary edema, history of melanoma and anemia of chronic disease, prior history of diverticular bleed 2020 who presents to the emergency room with rectal bleeding. Patient is a poor historian given her
history of dementia. She does state that she has been having rectal bleeding for about 1 day. I did discuss with her RN at bedside who states that she had 1 episode overnight and has not had any further episodes since. This was bright red blood
per rectum. Her vital signs have been stable. Her hemoglobin has been stable. There has not been any further signs of bleeding. She is currently tolerating a clear liquid diet at the present time. Colonoscopy was performed in 2020 for rectal
bleeding. She had diverticulosis in the sigmoid, descending and ascending colon. Two 5 mm polyps in the transverse and cecum were removed. These were tubulovillous adenomas. Patient without any NSAIDs, anticoagulation.
Impression:
Rectal bleeding, possibly diverticular versus hemorrhoidal. Patient not on any NSAIDs or anticoagulation
Anemia, both chronic disease and acute blood loss. Baseline hemoglobin runs between 9 and 10. Current hemoglobin is 8.9.
End-stage renal disease on HD Tuesdays and Saturdays
Dementia
Plan:
Continue clear liquid diet
Trend hemoglobin
If with active bleeding would do nuc med bleeding scan
Would hold off on any endoscopic intervention unless absolutely needed.
Will need to discuss with patient's as patient with dementia. Call placed to patient César Nair [phone], Left message to call back.
Further recommendations to be forthcoming
Data Reviewed
-
CT Scan: Report Reviewed by me
Old Records: Reviewed
-
-
Thank you for consultation and allowing me to participate in the patient's care. Please call the employee operations examiner GI physician during the after hours with any questions or concerns.
[2024-02-23 10:11] LABS: Iron 70 ug/dl (37-170)
[2024-02-23 11:00] VITALS: BMI 23.5
[2024-02-23 12:06] LABS: Percent Saturation 50 % (20-50); Total Iron Binding Capacity 176 ug/dl (265-497)
--- NOTE | 2024-02-23 12:12 | W.PN.HOSP.TC ---
Today's Communication/Plan
-
Monitor vital signs and see plan
Continue monitor hemoglobin, transfuse as necessary
Blood consented, in chart
GI following
HD per nephrology
Assessment / Plan
Assessment / Plan
General: Awake, alert and oriented, no acute distress
HEENT: No active discharge, ecchymosis or bruising
Neck:Supple, no JVD no bruit no goiter.
Respiratory: Normal AP contour and diameter, normal chest wall movement, normal respiratory effort
Heart: S1, S2 regular, normal rate
Gastrointestinal: soft, nontender, no guarding
Musculoskeletal: , no chest wall abnormality or tenderness
Extremities: No pitting edema
Neurological: Awake, alert and oriented x3, normal sensory and motor function
Psychiatric: Normal mood
Bright red blood per rectum likely diverticular bleed
Painless rectal bleed
Acute on chronic anemia, baseline hemoglobin around 9-10;today 8.9
End-stage renal disease on hemodialysis
Hyponatremia
Hypertension
Dementia
History of renal cell carcinoma status post right nephrectomy
PLAN:
Type and screen of fluids already ordered by the ER
No indication of octreotide drip and PPI IV, will continue her home dose of Protonix
Monitor vital signs closely
repeat Hgb later today
GI following
Patient was on full liquid diet, changed to clears
Continue home medication
Nephrology consult she is on dialysis Friday, and Saturdays
Continue carvedilol
Memantine D
Mirtazapine
Blood consented, in chart.
Check iron panel, B12, folate
CODE STATUS full code
DVT prophylaxis SCD
Anticipated Discharge: > 48 hours
Subjective/Interval History
-
Date of Service: February 23, 2024
denies pain
Objective Data
-
Labs:
Laboratory Results
02/23/24 02/23/24 02/23/24
03:03 06:03 13:00
WBC 9.1
Hgb 9.0 L 8.9 L Pending
Hct 28.7 L 28.0 L Pending
Plt Count 284 D
Sodium 128 L
Potassium 5.9 H
Chloride 92 L
Carbon Dioxide 24
BUN 44 H
Creatinine 5.8 H*
Glucose 91
Calcium 8.2 L
02/23/24
21:00
WBC
Hgb Pending
Hct Pending
Plt Count
Sodium
Potassium
Chloride
Carbon Dioxide
BUN
Creatinine
Glucose
Calcium
Vital Signs:
Vital Signs
Temp Pulse Resp BP Pulse Ox
97.7 F 73 17 127/72 100
02/23/24 07:58 02/23/24 08:11 02/23/24 07:58 02/23/24 08:11 02/23/24 07:58
I&O
02/22/24 02/23/24 02/24/24
06:59 06:59 06:59
Intake Total 240 / 240
Balance 240 / 240
[2024-02-23 12:43] LABS: Folate 5.9 ng/ml (2.76-20)
[2024-02-23 14:03] LABS: Hemoglobin 7.9 g/dL (12.0-16.0)
[2024-02-23 14:13] LABS: Vitamin B12 691 pg/ml (239-931)
--- NOTE | 2024-02-23 14:50 | CM ---
Met with pt at bedside
Lives in a 2 story home with her . 2 steps to enter, 12 steps to 2nd floor
Reports Min assist with adl's, ambulates with cane. prepares meals, cooks, drives
DME - [employer]
SNF - denies past hx
HH - denies past hx
Has ride at d/c
PCP - Dr Padmini Thompson
Pharm - [facility]
Plan - anticipate home no needs vs with HH
[2024-02-23 15:57] VITALS: BP 132/70
[2024-02-23] MEDS: RENVELA 800 MG PO (18:13)
[2024-02-23 20:45] LABS: Hematocrit 21.9 % (37.0-47.0)
[2024-02-23] MEDS: LIPITOR 20 MG PO (21:19)
[2024-02-23] MEDS: REMERON 15 MG PO (21:19)
[2024-02-23 23:43] VITALS: BP 124/63
[2024-02-24 06:00] VITALS: BMI 23.1
[2024-02-24 06:28] LABS: % Basophils 1.3 % (0-2); % Eosinophils 7.1 % (0-6); % Immature Granulocytes 0.5 % (0-0.5); % Lymphocytes 12.1 % (20.5-51.1); % Monocytes 12.3 % (1.7-9.3); % Neutrophils 66.7 % (42.2-75.2); Absolute Basophils 0.1 10^3/uL (0-0.2); Absolute Eosinophils 0.6 10^3/uL (0-0.7); Absolute Neutrophils 5.2 10^3/uL (1.4-6.5); Hematocrit 24.8 % (37.0-47.0); Hemoglobin 7.8 g/dL (12.0-16.0); Mean Corp Hgb Conc. 31.5 g/dL (33.0-37.0); Mean Corpuscular Hgb 28.7 pg (27.0-31.0); Mean Corpuscular Volume 91.2 fL (81.0-99.0); Mean Platelet Volume 10.2 fL (7.4-10.4); Nucleated Red Blood Cells % 0 %; Platelet Count 298 10^3/uL (130-400); Red Blood Cell Count 2.72 10^6/uL (4.20-5.40); Red Cell Dist. Width 15.2 % (11.5-14.5); White Blood Cell Count 7.9 10^3/uL (4.8-10.8)
[2024-02-24 07:01] LABS: Blood Urea Nitrogen 53 mg/dl (7-17); Carbon Dioxide 25 mmol/L (22-30); Chloride 87 mmol/L (98-107); Estimated Creatinine Clearance 4 ml/min; Glucose 84 mg/dl (70-99); Potassium 5.2 mmol/L (3.5-5.1); Sodium 124 mmol/L (135-145); eGFR 5.06
[2024-02-24 07:53] VITALS: BP 116/53
--- NOTE | 2024-02-24 08:25 | W.PN.GI.CBS2 ---
Today's Communication / Plan
-
Please see assessment plan for details.
Assessment / Plan
-
1. GI bleed: Likely diverticular, with diverticular bleed in the past, otherwise negative colonoscopy essentially in 2020, with no further bowel movements overnight and stable hemoglobin. At this point will advance diet, and if remains stable is
okay to DC from GI standpoint. Given age and comorbidities we will hold on repeat colonoscopy for now.
Subjective
Subjective
Date of Service: February 24, 2024
Patient feeling well, no bowel movements overnight, no abdominal pain, fever or chills.
Objective
Data Reviewed
Laboratory Data:
Laboratory Results
02/24/24 05:53
02/24/24 05:53
Laboratory Results
PT 13.6 Sec (11.4-14.6) 02/22/24 19:21
INR 1.06 02/22/24 19:21
APTT 31.5 Sec (23.4-35.0) 02/22/24 19:21
Total Bilirubin 0.8 mg/dl (0.2-1.3) 02/22/24 19:21
AST 20 U/L (14-36) 02/22/24 19:21
ALT < 10 U/L (0-35) 02/22/24 19:21
Alkaline Phosphatase 96 U/L (38-126) 02/22/24 19:21
Lipase 42 U/L (23-300) 02/22/24 19:21
Vital Signs and I&O:
Vital Signs
Temp Pulse Resp BP Pulse Ox
98.0 F 65 16 116/53 100
02/24/24 07:53 02/24/24 07:53 02/24/24 07:53 02/24/24 07:53 02/24/24 07:53
I&O
02/23/24 02/24/24 02/25/24
06:59 06:59 06:59
Intake Total 240 / 240 480 / 480
Output Total 0 / 0
Balance 240 / 240 480 / 480
Physical Exam
Physical Exam
General: NAD
Abdomen: normal bowel sounds, soft, no tenderness, no masses or bruits, no ascites
[2024-02-24] MEDS: RENVELA PO (08:37)
[2024-02-24] MEDS: MANNITOL 25% 12.5 GRAMS IV ×2 (08:38→09:38)
[2024-02-24] MEDS: RETACRIT 10000 UNITS IV (09:08)
[2024-02-24] MEDS: FERRLECIT 125 MG IV (09:09)
[2024-02-24] MEDS: HEPARIN 4300 UNITS INTRACATH (11:19)
--- NOTE | 2024-02-24 11:38 | W.PN.HOSP.TC ---
Today's Communication/Plan
-
Monitor vital signs see plan
Continue to monitor hemoglobin
Monitor further bleeding
HD today
Assessment / Plan
Assessment / Plan
General: Awake, alert and oriented, no acute distress
HEENT: No active discharge, ecchymosis or bruising
Neck:Supple, no JVD no bruit no goiter.
Respiratory: Normal AP contour and diameter, normal chest wall movement, normal respiratory effort
Heart: S1, S2 regular, normal rate
Gastrointestinal: soft, nontender, no guarding
Musculoskeletal: , no chest wall abnormality or tenderness
Extremities: No pitting edema
Neurological: Awake, alert and oriented x3, normal sensory and motor function
Psychiatric: Normal mood
Bright red blood per rectum likely diverticular bleed
Painless rectal bleed
Acute on chronic anemia, baseline hemoglobin around 9-10;today 7.9
End-stage renal disease on hemodialysis
Hyponatremia
Hypertension
Dementia
History of renal cell carcinoma status post right nephrectomy
PLAN:
Type and screen of fluids already ordered by the ER
No indication of octreotide drip and PPI IV, will continue her home dose of Protonix
GI following; no further bowel movement so far. GI advancing diet. Continue to monitor
Continue home medication
Nephrology consult she is on dialysis Friday, and Saturdays
Continue carvedilol
Memantine D
Mirtazapine
Blood consented, in chart.
Has good iron stores.
CODE STATUS full code
DVT prophylaxis SCD
Anticipated Discharge: Within 24 hours
Subjective/Interval History
-
Date of Service: February 24, 2024
Denies abdominal pain
Objective Data
-
Labs:
Laboratory Results
02/24/24
05:53
WBC 7.9
Hgb 7.8 L
Hct 24.8 L
Plt Count 298
Sodium 124 L
Potassium 5.2 H
Chloride 87 L
Carbon Dioxide 25
BUN 53 H
Creatinine 7.4 H*
Glucose 84
Calcium 7.0 L
Vital Signs:
Vital Signs
Temp Pulse Resp BP Pulse Ox
98.0 F 65 16 116/53 100
02/24/24 07:53 02/24/24 07:53 02/24/24 07:53 02/24/24 07:53 02/24/24 07:53
I&O
02/23/24 02/24/24 02/25/24
06:59 06:59 06:59
Intake Total 240 / 240 480 / 480
Output Total 0 / 0
Balance 240 / 240 480 / 480
[2024-02-24] MEDS: NAMENDA 5 MG PO ×2 (12:37→20:27)
[2024-02-24] MEDS: PROTONIX 40 MG PO (12:38)
[2024-02-24] MEDS: RENVELA 800 MG PO ×2 (12:38→16:52)
--- NOTE | 2024-02-24 13:43 | PTCARENOTE ---
Patient OOb to chair for lunch with supervision. Patient tolerated sitting up for 90 mins. Patient instructed on 1200 ml fluid restriction.
--- NOTE | 2024-02-24 13:48 | W.PN.NEPH.HD ---
Assessment
-
Seen on HD. no complaints. no new bleeding. VSS, access ok
ferrlecit on HD
Progress Note - Hemodialysis
-
Date of Service: February 24, 2024
Duration: 30 minutes and 3 hours
Potassium Bath: 2
Calcium Bath: 2.5
Opti-Dialyzer: 160
Ultrafiltration: Other (1kg)
Blood Flow: 400
Dialysate Flow: 600
Heparin: no
EPO: 74088 units
[2024-02-24 14:29] LABS: Transferrin 139 mg/dL (200-360)
[2024-02-24 15:58] VITALS: BP 115/55
[2024-02-24] MEDS: COREG 12.5 MG PO (16:52)
[2024-02-24] MEDS: REMERON 15 MG PO (21:47)
[2024-02-24] MEDS: LIPITOR 20 MG PO (21:47)
[2024-02-24 23:43] VITALS: BP 98/47
[2024-02-25] VITALS (7 sets, daily range): BP systolic 118–130; BP diastolic 52–70; BMI 23.7
[2024-02-25 06:17] LABS: % Basophils 0.9 % (0-2); % Eosinophils 4.2 % (0-6); % Immature Granulocytes 0.6 % (0-0.5); % Lymphocytes 9.9 % (20.5-51.1); % Monocytes 13.6 % (1.7-9.3); % Neutrophils 70.8 % (42.2-75.2); Absolute Basophils 0.1 10^3/uL (0-0.2); Absolute Eosinophils 0.3 10^3/uL (0-0.7); Absolute Immature Granulocytes 0.1 10^3/uL (0-0.05); Absolute Lymphocytes 0.8 10^3/uL (1.2-3.4); Absolute Monocytes 1.1 10^3/uL (0.1-0.6); Absolute Neutrophils 5.8 10^3/uL (1.4-6.5); Hematocrit 23.2 % (37.0-47.0); Hemoglobin 7.3 g/dL (12.0-16.0); Mean Corp Hgb Conc. 31.5 g/dL (33.0-37.0); Mean Corpuscular Hgb 28.5 pg (27.0-31.0); Mean Corpuscular Volume 90.6 fL (81.0-99.0); Nucleated Red Blood Cells % 0 %; Platelet Count 270 10^3/uL (130-400); Red Blood Cell Count 2.56 10^6/uL (4.20-5.40); Red Cell Dist. Width 15.9 % (11.5-14.5); White Blood Cell Count 8.2 10^3/uL (4.8-10.8)
[2024-02-25 06:55] LABS: Blood Urea Nitrogen 19 mg/dl (7-17); Calcium 7.9 mg/dl (8.4-10.2); Carbon Dioxide 27 mmol/L (22-30); Chloride 94 mmol/L (98-107); Estimated Creatinine Clearance 9 ml/min; Glucose 93 mg/dl (70-99); Potassium 3.8 mmol/L (3.5-5.1); Sodium 130 mmol/L (135-145); eGFR 12.02
--- NOTE | 2024-02-25 08:03 | W.PN.GI.CBS2 ---
Today's Communication / Plan
-
Please see assessment and plan for details.
Assessment / Plan
-
1. GI bleed: Likely diverticular, with diverticular bleed in the past, otherwise negative colonoscopy essentially in 2020, with no further bowel movements overnight and stable hemoglobin. The patient has tolerated diet without difficulty. Will
hold on any further GI workup for now given age and comorbidities and negative colonoscopy in 2020 we will hold on repeat colonoscopy for now.
We will sign off for now, please come back with any further questions.
Subjective
Subjective
Date of Service: February 25, 2024
Patient feeling better overall, no balance overnight, tolerated out of difficulty, no abdominal pain, nausea or vomiting.
Objective
Data Reviewed
Laboratory Data:
Laboratory Results
02/25/24 05:58
02/25/24 05:58
Laboratory Results
PT 13.6 Sec (11.4-14.6) 02/22/24 19:21
INR 1.06 02/22/24 19:21
APTT 31.5 Sec (23.4-35.0) 02/22/24 19:21
Total Bilirubin 0.8 mg/dl (0.2-1.3) 02/22/24 19:21
AST 20 U/L (14-36) 02/22/24 19:21
ALT < 10 U/L (0-35) 02/22/24 19:21
Alkaline Phosphatase 96 U/L (38-126) 02/22/24 19:21
Lipase 42 U/L (23-300) 02/22/24 19:21
Vital Signs and I&O:
Vital Signs
Temp Pulse Resp BP Pulse Ox
98.6 F 79 18 128/70 100
02/25/24 07:00 02/25/24 07:00 02/25/24 07:00 02/25/24 07:00 02/25/24 07:00
I&O
02/24/24 02/25/24 02/26/24
06:59 06:59 06:59
Intake Total 480 / 480 780 / 780
Output Total 0 / 0 0 / 0
Balance 480 / 480 780 / 780
Physical Exam
Physical Exam
General: NAD
Abdomen: normal bowel sounds, soft, no tenderness, no masses or bruits, no ascites
--- NOTE | 2024-02-25 10:24 | W.PN.HOSP.TC ---
Today's Communication/Plan
-
Monitor vital signs see plan
Repeat hemoglobin later today, if stable likely can be discharged
Monitor for the bowel movements
Assessment / Plan
Assessment / Plan
General: Awake, alert and oriented, no acute distress
HEENT: No active discharge, ecchymosis or bruising
Neck:Supple, no JVD no bruit no goiter.
Respiratory: Normal AP contour and diameter, normal chest wall movement, normal respiratory effort
Heart: S1, S2 regular, normal rate
Gastrointestinal: soft, nontender, no guarding
Musculoskeletal: , no chest wall abnormality or tenderness
Extremities: No pitting edema
Neurological: Awake, alert and oriented x3, normal sensory and motor function
Psychiatric: Normal mood
Bright red blood per rectum likely diverticular bleed
Painless rectal bleed
Acute on chronic anemia, baseline hemoglobin around 9-10;today 7.3. Repeat later today and if stable then likely can be discharged.
End-stage renal disease on hemodialysis
Hyponatremia
Hypertension
Dementia
History of renal cell carcinoma status post right nephrectomy
PLAN:
Type and screen of fluids already ordered by the ER
No indication of octreotide drip and PPI IV, will continue her home dose of Protonix
GI following; no further bowel movement so far. GI advancing diet. Continue to monitor. hgb today 7.3. Repeat later today and if stable then likely can be discharged.
Continue home medication
Nephrology following she is on dialysis Friday, and Saturdays
Continue carvedilol
Memantine D
Mirtazapine
Blood consented, in chart.
Has good iron stores.
CODE STATUS full code
DVT prophylaxis SCD
Anticipated Discharge: Today
Subjective/Interval History
-
Date of Service: February 25, 2024
Denies pain
Objective Data
-
Labs:
Laboratory Results
07/03/24 07/03/24
05:58 11:00
WBC 8.2
Hgb 7.3 L Pending
Hct 23.2 L Pending
Plt Count 270
Sodium 130 L
Potassium 3.8 D
Chloride 94 L
Carbon Dioxide 27
BUN 19 H
Creatinine 3.6 H
Glucose 93
Calcium 7.9 L
Vital Signs:
Vital Signs
Temp Pulse Resp BP Pulse Ox
98.6 F 79 18 128/70 100
02/25/24 07:00 02/25/24 07:00 02/25/24 07:00 02/25/24 07:00 02/25/24 07:00
I&O
02/24/24 02/25/24 02/26/24
06:59 06:59 06:59
Intake Total 480 / 480 780 / 780
Output Total 0 / 0 0 / 0
Balance 480 / 480 780 / 780
[2024-02-25] MEDS: PROTONIX 40 MG PO (10:29)
[2024-02-25] MEDS: NAMENDA 5 MG PO ×2 (10:29→20:04)
[2024-02-25] MEDS: RENVELA 800 MG PO (10:30)
[2024-02-25] MEDS: COREG 12.5 MG PO ×2 (10:36→17:25)
--- NOTE | 2024-02-25 10:53 | W.PN.NEPH.PH ---
Today's Communication / Plan
-
follow hgb
Assessment/Plan
-
Impression:
ESRD TTS
Hyperkalemia
Rectal bleed
Anemia
Hyperphosphatemia
Secondary hyperparathyroid
Hypertension
Dementia
History of renal cell carcinoma status post right nephrectomy
History of multiple joint replacements
Hyponatremia
Plan:
HD tomorrow
follow hgb
-
-
Date of Service: February 25, 2024
CC / HPI / ROS
-
Chief Complaint:
ESRD
History of Present Illness:
tolerated HD yesterday
Hgb low stable 7.3
no bleeding currently
BP stable
Review of Systems:
no CP/SOB
Labs
-
Labs:
WBC 8.2 10^3/uL (4.8-10.8) 02/25/24 05:58
RBC 2.56 10^6/uL (4.20-5.40) L 02/25/24 05:58
Plt Count 270 10^3/uL (130-400) 02/25/24 05:58
Sodium 130 mmol/L (135-145) L 02/25/24 05:58
Potassium 3.8 mmol/L (3.5-5.1) D 02/25/24 05:58
Chloride 94 mmol/L (98-107) L 02/25/24 05:58
Carbon Dioxide 27 mmol/L (22-30) 02/25/24 05:58
BUN 19 mg/dl (7-17) H 02/25/24 05:58
Creatinine 3.6 mg/dL (0.6-1.0) H 02/25/24 05:58
eGFR 12.02 02/25/24 05:58
Glucose 93 mg/dl (70-99) 02/25/24 05:58
Calcium 7.9 mg/dl (8.4-10.2) L 02/25/24 05:58
Albumin 3.8 g/dl (3.5-5.0) 02/22/24 19:21
Physical Exam
-
Vital Signs:
Vital Signs
Temp Pulse Resp BP Pulse Ox
98.6 F 79 18 128/70 98
02/25/24 07:00 02/25/24 07:00 02/25/24 07:00 02/25/24 07:00 02/25/24 10:38
Cardiovascular:: Regular rate and rhythm
Respiratory:: Bilateral: Coarse
Lung Excursion:: Normal
Abdomen:: Nontender and Soft
Bowel Sounds:: Normal
Extremity Edema:: None: Bilateral:
[2024-02-25] MEDS: RENVELA PO ×2 (11:00→17:21)
[2024-02-25 11:18] LABS: Hemoglobin 7.1 g/dL (12.0-16.0)
--- NOTE | 2024-02-25 15:28 | CM ---
Case management following for d/c needs
Chart reviewed, spoke with pt
PT no skilled needs
D/C pending labs
will transport home
Plan - anticipate home no needs
--- NOTE | 2024-02-25 15:59 | PTCARENOTE ---
RN confirmed with blood bank that [facility] is dropping off blood in 4-6 hours. RN relayed this to hospitalist, pt, and pt's daughter.
[2024-02-25] MEDS: REMERON 15 MG PO (21:32)
[2024-02-25] MEDS: LIPITOR 20 MG PO (21:32)
[2024-02-26 06:00] VITALS: BMI 24.4
[2024-02-26 07:30] VITALS: BP 147/71
[2024-02-26 08:14] LABS: % Basophils 0.3 % (0-2); % Immature Granulocytes 0.9 % (0-0.5); % Monocytes 5.1 % (1.7-9.3); % Neutrophils 86.7 % (42.2-75.2); Absolute Eosinophils 0.3 10^3/uL (0-0.7); Absolute Immature Granulocytes 0.1 10^3/uL (0-0.05); Absolute Lymphocytes 0.4 10^3/uL (1.2-3.4); Absolute Monocytes 0.5 10^3/uL (0.1-0.6); Absolute Neutrophils 9.1 10^3/uL (1.4-6.5); Hematocrit 27.4 % (37.0-47.0); Mean Corp Hgb Conc. 31.8 g/dL (33.0-37.0); Mean Corpuscular Hgb 27.8 pg (27.0-31.0); Mean Corpuscular Volume 87.5 fL (81.0-99.0); Mean Platelet Volume 9.6 fL (7.4-10.4); Nucleated Red Blood Cells % 0 %; Platelet Count 246 10^3/uL (130-400); Red Blood Cell Count 3.13 10^6/uL (4.20-5.40); Red Cell Dist. Width 18.2 % (11.5-14.5); White Blood Cell Count 10.5 10^3/uL (4.8-10.8)
[2024-02-26 08:19] LABS: Hemoglobin 8.7 g/dL (12.0-16.0)
[2024-02-26 08:39] LABS: Blood Urea Nitrogen 29 mg/dl (7-17); Carbon Dioxide 27 mmol/L (22-30); Chloride 90 mmol/L (98-107); Estimated Creatinine Clearance 6 ml/min; Glucose 116 mg/dl (70-99); Potassium 4.2 mmol/L (3.5-5.1); Sodium 125 mmol/L (135-145); eGFR 7.39
[2024-02-26] MEDS: FERRLECIT 125 MG IV (09:10)
[2024-02-26] MEDS: RETACRIT 10000 UNITS IV (09:15)
--- NOTE | 2024-02-26 09:47 | W.PN.NEPH.HD ---
Assessment
-
Patient seen on HD
sbp 118 stable for u/f
hgg up to 8.7 after blood transfusion
Progress Note - Hemodialysis
-
Date of Service: February 26, 2024
Duration: 30 minutes and 3 hours
Potassium Bath: 3
Calcium Bath: 2.5
Opti-Dialyzer: 160
Ultrafiltration: Other (3kg as hemodynamically tolerated)
Blood Flow: 400
Dialysate Flow: 600
Heparin: no
EPO: 10,000K IV iron
--- NOTE | 2024-02-26 10:32 | W.PN.HOSP.TC ---
Today's Communication/Plan
-
Monitor vital signs and see plan
Hemoglobin now improved to 8.7 after transfusion, no further bleeding
HD today
Discharge today after HD
Time of discharge 38 minutes
Assessment / Plan
Assessment / Plan
General: Awake, alert and oriented, no acute distress
HEENT: No active discharge, ecchymosis or bruising
Respiratory: Normal AP contour and diameter, normal chest wall movement, normal respiratory effort
Heart: S1, S2 regular, normal rate
Gastrointestinal: soft, nontender, no guarding
Musculoskeletal: , no chest wall abnormality or tenderness
Extremities: No pitting edema
Neurological: Awake, alert and oriented x3, normal sensory and motor function
Psychiatric: Normal mood
Bright red blood per rectum likely diverticular bleed
Painless rectal bleed
Acute on chronic anemia, baseline hemoglobin around 9-10;today 7.3. Repeat later today and if stable then likely can be discharged.
End-stage renal disease on hemodialysis
Hyponatremia
Hypertension
Dementia
History of renal cell carcinoma status post right nephrectomy
PLAN:
Type and screen of fluids already ordered by the ER
No indication of octreotide drip and PPI IV, will continue her home dose of Protonix
GI following; no further bowel movement so far. GI advancing diet. Continue to monitor. Received 1 unit PRBC 02/24. Hemoglobin now 8.7. Denies any further bleeding. Patient will follow-up with GI outpatient
Continue home medication
Nephrology following she is on dialysis Friday, and Saturdays
Continue carvedilol
Memantine D
Mirtazapine
Blood consented, in chart.
Has good iron stores.
CODE STATUS full code
DVT prophylaxis SCD
Anticipated Discharge: Today
Subjective/Interval History
-
Date of Service: February 26, 2024
Denies abdominal pain
Objective Data
-
Labs:
Laboratory Results
02/26/24
08:07
WBC 10.5
Hgb 8.7 L D
Hct 27.4 L
Plt Count 246
Sodium 125 L
Potassium 4.2
Chloride 90 L
Carbon Dioxide 27
BUN 29 H
Creatinine 5.4 H*
Glucose 116 H
Calcium 8.0 L
Vital Signs:
Vital Signs
Temp Pulse Resp BP Pulse Ox
97.9 F 71 18 147/71 100
02/26/24 07:30 02/26/24 07:30 02/26/24 07:30 02/26/24 07:30 02/26/24 07:30
I&O
02/25/24 02/26/24 02/27/24
06:59 06:59 06:59
Intake Total 780 / 780 1210 / 1210
Output Total 0 / 0
Balance 780 / 780 1210 / 1210
--- NOTE | 2024-02-26 10:36 | W.DCSUMMARY ---
Discharge Summary
Discharge Data
Date of Admission: 02/22/24
Date of Discharge: 02/26/24
-
Pending Results: No
Hospital Course
84-year-old female with past medical history of chronic anemia, ESRD on hemodialysis, hypertension, dementia, renal cell carcinoma status post nephrectomy came to the hospital with painless bright red blood per rectum which was likely thought was
secondary to diverticular bleed. Patient was seen by GI throughout hospitalization. Eventually patient bleeding stopped on its own so GI recommended patient to follow-up with them outpatient for possible colonoscopy. Patient did require 1 unit of
blood transfusion for hemoglobin of 7.1 while she was in the hospital. Her discharge hemoglobin was 8.7. She also required hemodialysis while she was in the hospital. Once patient hemoglobin improved and her bleeding stopped, she was then
discharged home with instructions to follow-up with all her physicians outpatient.
Discharge Plan
-
Patient Disposition: Home (Routine Discharge)
Discharge Diagnosis/Procedures: Gastrointestinal bleeding
Acute blood loss anemia, also has chronic anemia
ESRD on hemodialysis
Diet: As tolerated
Activity: As tolerated
Driving Restrictions: As prior to admission
Bathing Restrictions: None
Blood Work: CBC next week with primary care provider
Referrals:
Fransico Jane MD [Active] -
Padmini Thompson MD [Family Provider] - in less than 1 week
Prescriptions:
Continued
atorvastatin 20 MG tablet
20 mg PO HS
pantoprazole 40 MG tablet,delayed release (DR/EC)
40 mg PO DAILY
acetaminophen [Tylenol Extra Strength] 500 mg Tablet
1,000 mg PO BIDPRN PRN (Reason: mild pain)
mirtazapine 15 mg Tablet
15 mg PO HS
sevelamer carbonate 800 mg Tablet
800 mg PO AC
cholecalciferol (vitamin D3) 50 mcg (2,000 unit) Tablet
50 mcg PO HS
memantine 5 mg Tablet
5 mg PO BID
Patient Comments:
02/18/24: spouse is unsure of strength, last filled on 09/10/23 for 180 tablets
carvedilol 12.5 mg Tablet
12.5 mg PO SUMOWEFR@0800,1800
carvedilol 12.5 mg Tablet
12.5 mg PO TUTHSA@1800
Discharge Orders:
Discharge Patient (As Directed); Ordered 02/26/24
Ordered By: Fabio Jimenez
Discharge Date and Time
Discharge Date/Time: 02/26/24 14:33
Print Language: MALTESE
[2024-02-26] MEDS: HEPARIN 4300 UNITS INTRACATH (11:15)
[2024-02-26] MEDS: RENVELA 800 MG PO (12:16)
[2024-02-26] MEDS: NAMENDA 5 MG PO (12:16)
[2024-02-26] MEDS: PROTONIX 40 MG PO (12:16)
[2024-02-26] MEDS: RENVELA PO (12:18)
[2024-02-26 14:20] VITALS: BP 155/67
== END 2024-02-26 14:33 | disposition home or self-care (01) ==
LOC: 3 WEST ACU 21:41
PROVIDERS: ADMITTING PHYSICIAN Internal Medicine; ATTENDING PHYSICIAN Internal Medicine; CONSULT PHYSICIAN Internal Medicine Gastroenterology; EMERGENCY PHYSICIAN Student in an Organized Health Care Education/Training Program; FAMILY PHYSICIAN Family Medicine; OTHER PHYSICIAN Specialist
DX: K62.5 Hemorrhage of anus and rectum (principal); D62 Acute posthemorrhagic anemia; G30.9 Alzheimer's disease, unspecified; F02.80 Dementia in other diseases classified elsewhere, unspecified severity, without behavioral disturbance, psychotic disturbance, mood disturbance, and anxiety; E11.36 Type 2 diabetes mellitus with diabetic cataract; I13.2 Hypertensive heart and chronic kidney disease with heart failure and with stage 5 chronic kidney disease, or end stage renal disease; N18.6 End stage renal disease; E11.22 Type 2 diabetes mellitus with diabetic chronic kidney disease; K21.9 Gastro-esophageal reflux disease without esophagitis; E87.1 Hypo-osmolality and hyponatremia; M85.80 Other specified disorders of bone density and structure, unspecified site; N25.81 Secondary hyperparathyroidism of renal origin; E87.5 Hyperkalemia; G47.30 Sleep apnea, unspecified; E78.5 Hyperlipidemia, unspecified; D50.9 Iron deficiency anemia, unspecified; I50.32 Chronic diastolic (congestive) heart failure; D63.1 Anemia in chronic kidney disease; E83.39 Other disorders of phosphorus metabolism; F32.A Depression, unspecified; E78.00 Pure hypercholesterolemia, unspecified; Z85.528 Personal history of other malignant neoplasm of kidney; Z99.2 Dependence on renal dialysis; Z82.49 Family history of ischemic heart disease and other diseases of the circulatory system; Z90.49 Acquired absence of other specified parts of digestive tract; Z96.653 Presence of artificial knee joint, bilateral; Z90.710 Acquired absence of both cervix and uterus; Z85.820 Personal history of malignant melanoma of skin; Z96.643 Presence of artificial hip joint, bilateral; Z90.5 Acquired absence of kidney; Z87.19 Personal history of other diseases of the digestive system; Z88.1 Allergy status to other antibiotic agents; Z88.2 Allergy status to sulfonamides
CPT/HCPCS: 80048; 80053; 82607; 82728; 82746; 83540; 83550; 83690; 84466; 85014; 85018; 85025; 85027; 85610; 85730; 86850; 86870; 86900; 86901; 86920; 87070; 93005; 96374; 96375; 99291; G0257; G0378; J2916; P9016; P9047; Q5106

== ENCOUNTER → 2024-04-13 12:58 | Outpatient (REF) | payer MEDICARE, SELFPAY ==
[2024-04-13 13:15] VITALS: BP 172/82; BP_SYST 79
[2024-04-13] MEDS: ANCEF 5 IV (14:11)
[2024-04-13 15:05] VITALS: BP 198/90
== END ==
LOC: RADI 12:58
PROVIDERS: ATTENDING PHYSICIAN Specialist; FAMILY PHYSICIAN Family Medicine
DX: T82.49XA Other complication of vascular dialysis catheter, initial encounter (principal); Y83.8 Other surgical procedures as the cause of abnormal reaction of the patient, or of later complication, without mention of misadventure at the time of the procedure; N18.6 End stage renal disease
CPT/HCPCS: 36581; 36595; 75901; 77001; C1725; C1750; C1769

== ENCOUNTER → 2024-05-13 09:45 | Outpatient (REF) | payer MEDICARE, SELFPAY | LOC: RAD 09:45 | PROVIDERS: ATTENDING PHYSICIAN Family Medicine | DX: R41.89 Other symptoms and signs involving cognitive functions and awareness (principal); W19.XXXA Unspecified fall, initial encounter | CPT/HCPCS: 70450 ==

== ENCOUNTER → 2024-07-15 13:38 | Outpatient (REF) | payer MEDICARE, SELFPAY | LOC: WDC 13:38 | PROVIDERS: ATTENDING PHYSICIAN Family Medicine | DX: Z12.31 Encounter for screening mammogram for malignant neoplasm of breast (principal) | CPT/HCPCS: 77063; 77067 ==

== ENCOUNTER 2024-08-24 17:53 | Emergency (ER) | payer MEDICARE, SELFPAY ==
[2024-08-24 18:06] VITALS: BP 162/86
--- NOTE | 2024-08-24 19:32 | ED.GENMED ---
History of Present Illness
General
Chief Complaint: Musculo-Skeletal Complaint
Source: patient and family
Exam Limitations: none
Time Seen by Provider: 08/24/24 19:01
History of Present Illness
History of Present Illness:
Patient fell getting out of [employer]. No syncope. Only complaining of right upper shoulder pain. No head injury no neck pain no LOC no chest pain abdominal pain etc.
Past History
Past History
ED Past Medical History: Cancer (Left kidney Sine, ), CHF, GERD, HTN, Hypercholesterolemia, Renal failure (on HD T//), Seizures, Psychiatric (Depression), Other (Alzheimer but patient is alert and able to answer questions. Sleep apnea but lost
weight and now gone Renal artery Aneurysm, Pul edema, Diverticulitis) and Other (GI bleeding Iron def. anemia, ); Negative CAD
ED Past Surgical History: Cholecystectomy, , Gynecological (Hysterectomy), Orthopedic (Dennis hip and knee replacements), Urological and Other (Cataracts)
Patient has exhibited threatening behavior?: No
PSI?: No
Social History
Tobacco: Non-smoker
Alcohol: Occasional
Drug: None
Personal:
Living: with family
Employment: Retired
Family History
Family History: Hypertension
Review of Systems
Review of Systems
All Other Systems: Not applicable
Respiratory: Reports no symptoms
Cardiac: Reports no symptoms
Phy Exam
Physical Exam
Physical Exam:
TRAUMA EXAM:
VITAL SIGNS: Vital signs reviewed, cooperative. Frail
DISTRESS: No active disease
EYES: Pupils reactive, no orbital trauma
NOSE: No deformity or epistaxis
FACE AND SCALP: No scalp or facial trauma
NECK: Supple nontender
BACK: Pelvis stable to compression
RESPIRATORY: No distress, breath sounds normal, no tender chest wall
CARDIAC: No murmur, pulses equal and strong
ABDOMEN: Soft nontender bowel sounds normal
SKIN: Skin intact no bleeding, color normal
EXTREMITIES: Tenderness distal right clavicle. No tenting. All other extremities unremarkable
NEUROLOGICAL: Alert, oriented, no motor deficits
PSYCH: Mood affect normal
Course
Orders/Labs/Results
Orders:
Orders
08/24/24 18:08
Shoulder, Right 2 Views [CR Shoulder - Right Min 2 View] Urgent
Comment:
Reason For Exam: pain, trauma
08/24/24 20:09
Sling Right-Treatment ONCE
Vital Signs
Initial and Last Documented VS:
Initial Vital Signs
Temp Pulse Resp BP Pulse Ox
98.8 F 64 18 162/86 100
08/24/24 18:06 08/24/24 18:06 08/24/24 18:06 08/24/24 18:06 08/24/24 18:06
Last Documented Vital Signs
Temp Pulse Resp BP Pulse Ox
98.8 F 99 18 145/76 100
08/24/24 18:06 08/24/24 20:00 08/24/24 18:06 08/24/24 20:00 08/24/24 20:00
*Radiology
Radiology exam reviewed: radiology read reviewed (Comminuted displaced distal clavicle fracture)
*Pulse Oximetry
Patient hypoxic: no
*Critical Care Note
Total Time (30-74mins, 75-104mins- exclusive of procedures): Not Applicable
Update Note
Update Note:
Films and report sent to orthopedics. Sling and follow-up
ED Attending Note
-
Portions of this chart may have been created with voice recognition software.� Occasional wrong word or��sound alike� substitutions may have occurred due to the inherent limitations of voice recognition software.
Discharge Plan
Departure
Patient Disposition: Home (Routine Discharge)
Date of Disposition: 08/24/24
Time of Disposition: 20:10
Patient with high blood pressure during this ER visit?: Yes
Discharge Problem:
Displaced right clavicle fracture
Instructions: Clavicle fracture, BLOOD PRESSURE
Prescriptions:
New
hydrocodone-acetaminophen 5-300 mg tablet
0.5 tab PO Q4H PRN (Reason: Pain) Qty: 10 0RF
No Action
atorvastatin 20 MG tablet
20 mg PO HS
pantoprazole 40 MG tablet,delayed release (DR/EC)
40 mg PO DAILY
acetaminophen [Tylenol Extra Strength] 500 mg Tablet
1,000 mg PO BIDPRN PRN (Reason: mild pain)
mirtazapine 15 mg Tablet
15 mg PO HS
sevelamer carbonate 800 mg Tablet
800 mg PO AC
cholecalciferol (vitamin D3) 50 mcg (2,000 unit) Tablet
50 mcg PO HS
memantine 5 mg Tablet
5 mg PO BID
Patient Comments:
02/18/24: spouse is unsure of strength, last filled on 09/10/23 for 180 tablets
carvedilol 12.5 mg Tablet
12.5 mg PO SUMOWEFR@0800,1800
carvedilol 12.5 mg Tablet
12.5 mg PO TUTHSA@1800
Referrals:
Navneet Finney MD [Active] - Follow up in 2-3 days
Vitor Hurtado MD [Family Provider] -
Activity Restrictions/Additional Instructions:
The prescription was sent to your pharmacy.
Discharge Date and Time
Print Language: ROMANSH
[2024-08-24 20:00] VITALS: BP 145/76
== END 2024-08-24 20:25 | disposition home or self-care (01) ==
LOC: EMR 17:53
PROVIDERS: EMERGENCY PHYSICIAN Emergency Medicine; FAMILY PHYSICIAN Family Medicine
DX: S42.031A Displaced fracture of lateral end of right clavicle, initial encounter for closed fracture (principal); X58.XXXA Exposure to other specified factors, initial encounter; I11.0 Hypertensive heart disease with heart failure; I50.9 Heart failure, unspecified; E78.00 Pure hypercholesterolemia, unspecified; F02.80 Dementia in other diseases classified elsewhere, unspecified severity, without behavioral disturbance, psychotic disturbance, mood disturbance, and anxiety; G30.9 Alzheimer's disease, unspecified; G47.30 Sleep apnea, unspecified; K21.9 Gastro-esophageal reflux disease without esophagitis; M19.011 Primary osteoarthritis, right shoulder; M81.0 Age-related osteoporosis without current pathological fracture; Z82.49 Family history of ischemic heart disease and other diseases of the circulatory system; Z85.528 Personal history of other malignant neoplasm of kidney; Z90.49 Acquired absence of other specified parts of digestive tract; Z90.710 Acquired absence of both cervix and uterus; Z96.653 Presence of artificial knee joint, bilateral
CPT/HCPCS: 99283; 73030

== ENCOUNTER 2024-09-14 14:13 | Emergency (ER) | payer MEDICARE, SELFPAY ==
[2024-09-14 14:19] VITALS: BP 90/53
--- NOTE | 2024-09-14 14:41 | ED.GENMED ---
History of Present Illness
<Stanton Hinojosa, DO - Last Filed: 09/14/24 16:13>
General
Chief Complaint: Heart Rate Problem
Source: patient and family (Daughter, who gives home dialysis)
Exam Limitations: none
Time Seen by Provider: 09/14/24 14:29
Nursing documentation reviewed up to this point in time: agreed with
History of Present Illness
History of Present Illness:
84-year-old female presents emergency department due to irregular heartbeat. She noted her heart rate was in the 150s last night. They called the cardiology office and were directed to the emergency department. She gives 5000 units heparin twice
daily.
Past History
<Stanton Hinojosa, DO - Last Filed: 09/14/24 16:13>
Past History
ED Past Medical History: Cancer (Left kidney Sine, ), CHF, GERD, HTN, Hypercholesterolemia, Renal failure (on HD //), Seizures, Psychiatric (Depression), Other (Alzheimer but patient is alert and able to answer questions. Sleep apnea but lost
weight and now gone Renal artery Aneurysm, Pul edema, Diverticulitis) and Other (GI bleeding Iron def. anemia, ); Negative CAD
ED Past Surgical History: Cholecystectomy, , Gynecological (Hysterectomy), Orthopedic (Dennis hip and knee replacements), Urological and Other (Cataracts)
Patient has exhibited threatening behavior?: No
PSI?: No
Social History
Tobacco: Non-smoker
Alcohol: Occasional
Drug: None
Personal:
Living: with family
Employment: Retired
Family History
Family History: Hypertension
Review of Systems
<Stanton Hinojosa, - Last Filed: 09/14/24 16:13>
Review of Systems
Allergies reviewed?: Yes
All Other Systems: Not applicable
Constitutional: Reports no symptoms
EENT: Reports no symptoms
Respiratory: Reports no symptoms
Cardiac: Reports palpitations
ABD/GI: Reports no symptoms
: Reports no symptoms
Musculoskeletal: Reports no symptoms
Skin: Reports no symptoms
Neurological: Reports no symptoms
Endocrine: Reports no symptoms
Hematologic/Lymphatic: Reports no symptoms
Psychiatric: Reports no symptoms
Phy Exam
<Stanton Hinojosa, DO - Last Filed: 09/14/24 16:13>
Physical Exam
Physical Exam:
Physical Exam
General: no apparent distress, not acutely ill
Neck: supple. no meningeal signs. normal posterior pharynx
Heart: s1/s2 regular rate and irregular rhythm, no murmur. equal radial
pulses.
HEENT: Pupils equal round reactive to light, EOMI
Lungs: no acute respiratory distress. clear bilaterally
Abdomen: normal bowel sounds. not tender. no CVAT
Neuro: alert and oriented. no focal neurological deficits cranial nerves II through XII intact
Skin: no rash
Psychiatric: well kept. interactive and cooperative
Extremities: no edema. no calf tenderness. negative homans. good distal pulses
Course
<Stanton Hinojosa, DO - Last Filed: 09/14/24 16:13>
Orders/Labs/Results
Orders:
Orders
09/14/24 14:16
EKG [Electrocardiogram (*1)] Urgent
Reason for Study: Palpitations
EKG- Treatment ONCE
09/14/24 14:39
IV Insert/Care/Rem.- Treatment PRN
09/14/24 14:52
Complete Blood Count/With Diff Urgent
PTT Urgent
Prothrombin Time Urgent
09/14/24 15:47
Basic Metabolic Panel Urgent
09/14/24 15:51
CR Chest - 2 Views Urgent
Comment:
Reason For Exam: afib, history pleural effusion
Abnormal Lab Results
09/14/24 09/14/24
14:52 15:47
WBC 12.0 H 10^3/uL
(4.8-10.8)
RBC 3.18 L 10^6/uL
(4.20-5.40)
Hgb 9.4 L g/dL
(12.0-16.0)
Hct 30.7 L %
(37.0-47.0)
MCHC 30.6 L g/dL
(33.0-37.0)
RDW 15.9 H %
(11.5-14.5)
MPV 10.8 H fL
(7.4-10.4)
Abs Immat Gran (auto) 0.1 H 10^3/uL
(0-0.05)
Absolute Neuts (auto) 10.2 H 10^3/uL
(1.4-6.5)
Absolute Lymphs (auto) 0.8 L 10^3/uL
(1.2-3.4)
Absolute Monos (auto) 0.8 H 10^3/uL
(0.1-0.6)
Immature Gran % 0.8 H %
(0-0.5)
Neutrophils % 84.8 H %
(42.2-75.2)
Lymphocytes % 6.7 L %
(20.5-51.1)
APTT 68.9 H Sec
(23.4-35.0)
Sodium 134 L mmol/L
(135-145)
Chloride 95 L mmol/L
(98-107)
Creatinine 2.1 H mg/dL
(0.6-1.0)
Glucose 155 H mg/dl
(70-99)
09/14/24 14:52
09/14/24 15:47
Vital Signs
Initial and Last Documented VS:
Initial Vital Signs
Temp Pulse Resp BP Pulse Ox
36.3 C 97 18 90/53 100
09/14/24 14:19 09/14/24 14:19 09/14/24 14:19 09/14/24 14:19 09/14/24 14:19
Last Documented Vital Signs
Temp Pulse Resp BP Pulse Ox
36.3 C 84 20 97/55 96
09/14/24 14:19 09/14/24 17:05 09/14/24 17:05 09/14/24 17:05 09/14/24 16:32
<Bladimir Huntley MD - Last Filed: 09/14/24 17:15>
Orders/Labs/Results
Orders:
Orders
09/14/24 14:16
EKG [Electrocardiogram (*1)] Urgent
Reason for Study: Palpitations
EKG- Treatment ONCE
09/14/24 14:39
IV Insert/Care/Rem.- Treatment PRN
09/14/24 14:52
Complete Blood Count/With Diff Urgent
PTT Urgent
Prothrombin Time Urgent
09/14/24 15:47
Basic Metabolic Panel Urgent
09/14/24 15:51
CR Chest - 2 Views Urgent
Comment:
Reason For Exam: afib, history pleural effusion
Abnormal Lab Results
09/14/24 09/14/24
14:52 15:47
WBC 12.0 H 10^3/uL
(4.8-10.8)
RBC 3.18 L 10^6/uL
(4.20-5.40)
Hgb 9.4 L g/dL
(12.0-16.0)
Hct 30.7 L %
(37.0-47.0)
MCHC 30.6 L g/dL
(33.0-37.0)
RDW 15.9 H %
(11.5-14.5)
MPV 10.8 H fL
(7.4-10.4)
Abs Immat Gran (auto) 0.1 H 10^3/uL
(0-0.05)
Absolute Neuts (auto) 10.2 H 10^3/uL
(1.4-6.5)
Absolute Lymphs (auto) 0.8 L 10^3/uL
(1.2-3.4)
Absolute Monos (auto) 0.8 H 10^3/uL
(0.1-0.6)
Immature Gran % 0.8 H %
(0-0.5)
Neutrophils % 84.8 H %
(42.2-75.2)
Lymphocytes % 6.7 L %
(20.5-51.1)
APTT 68.9 H Sec
(23.4-35.0)
Sodium 134 L mmol/L
(135-145)
Chloride 95 L mmol/L
(98-107)
Creatinine 2.1 H mg/dL
(0.6-1.0)
Glucose 155 H mg/dl
(70-99)
09/14/24 14:52
09/14/24 15:47
Vital Signs
Initial and Last Documented VS:
Initial Vital Signs
Temp Pulse Resp BP Pulse Ox
36.3 C 97 18 90/53 100
09/14/24 14:19 09/14/24 14:19 09/14/24 14:19 09/14/24 14:19 09/14/24 14:19
Last Documented Vital Signs
Temp Pulse Resp BP Pulse Ox
36.3 C 84 20 97/55 96
09/14/24 14:19 09/14/24 17:05 09/14/24 17:05 09/14/24 17:05 09/14/24 16:32
<Stanton Hinojosa DO - Last Filed: 09/14/24 16:13>
MDM/Problems Addressed
Differential Diagnosis Includes:
Rapid atrial fibrillation, electrolyte abnormality CT
MDM/Problems Addressed:
84-year-old female with atrial fibrillation, new onset. Patient not candidate for anticoagulation, due to fall risk and CKD. Discussed with Dr. Black, who recommends discharge and follow-up.
Chronic conditions affecting care: HTN
Acute Exacerbation and/or Progression of Chronic Illness: HTN
<Stanton Hinojosa DO - Last Filed: 09/14/24 16:13>
*Pulse Oximetry
Patient hypoxic: no
*EKG
Interpreted by ED Provider?: Yes
EKG Intrepretation Date: 09/14/24
EKG Intrepretation Time: 14:16
Interpretation: abnormal
Comparison EKG: changes noted
Heart Rate: 107
Rate: tachycardiac
Rhythm: a-fib
Welda: normal axis
Interval: normal interval
QRS Pattern: normal QRS
Ischemia: no ischemia
*Litigation Claim Representative Interpretation
Rate: normal
Interpretation: abnormal
Heart Rate: 95
Rhythm: a-fib
*Critical Care Note
Total Time (30-74mins, 75-104mins- exclusive of procedures): Not Applicable
<Stanton Hinojosa, - Last Filed: 09/14/24 16:13>
Patient Management
Social determinants of health affecting care: Living situation and Strong social support
Discussion with other providers: [facility] Out [facility] Helper (cardiology, Dr. Black, recommends d/c and f/u. Nephrology, Dr. Oseguera, stable for d/c)
<Bladimir Huntley MD - Last Filed: 09/14/24 17:15>
Update Note
Update Note:
UPDATE (Bladimir Huntley MD)
I have seen and evaluated the patient after signout and reviewed all labs and imaging.
Focused HPI: 84-year-old female presents with new onset A-fib. She is rate controlled here and asymptomatic. Noted incidentally while daughter was given dialysis yesterday. Case was discussed with cardiology felt that risks of anticoagulation
likely outweigh benefit and so no anticoagulation started. Soft blood pressure hesitant to add additional medications for rate control for this reason; heart rate is already very well-controlled. She had a CBC which shows no clinically significant
abnormalities, her chemistry is pending as is a chest x-ray but if these are normal plan is for discharge home per patient and daughter preference.
Physical exam: Awake alert no distress. Heart rate in the 80s. Soft blood pressure stable.
Medical Decision Makin-year-old female presents with new onset A-fib. No plans for anticoagulation after discussion with patient, family, cardiology. She was pending chemistry�reviewed CMP and no clinically significant abnormalities. Chest
x-ray shows pleural effusions that she has a long history of pleural effusions and is actually scheduled to follow-up with pulmonology within the next week to discuss whether she needs additional thoracentesis. No indication for emergent drainage
with stable vitals at this point. Plan for discharge home, cardiology follow-up as an outpatient. While we are not starting anticoagulation I did discuss with patient and daughter about rate control medications. She has been on Coreg for blood
pressure control but daughter says that she actually stopped this a few weeks ago and is not taking any beta-emmanuel due to soft blood pressures. Right now heart rate is very well-controlled but I spoke to patient and daughter about potential for
tachycardia/RVR with A-fib; wrote a prescription for Toprol and to be used if blood pressure will allow in cases of tachycardia.
ED Attending Note
<Stanton Hinojosa, DO - Last Filed: 09/14/24 16:13>
-
Portions of this chart may have been created with voice recognition software.� Occasional wrong word or��sound alike� substitutions may have occurred due to the inherent limitations of voice recognition software.
Discharge Plan
Departure
Patient Disposition: Home (Routine Discharge)
Date of Disposition: 09/14/24
Time of Disposition: 17:05
Patient with high blood pressure during this ER visit?: No
Condition: Good
Discharge Problem:
Atrial fibrillation, ESRD on hemodialysis, Anemia of chronic disease
Instructions: Atrial Fibrillation (DC), Chest Pain CBC Follow Up
Prescriptions:
New
metoprolol succinate [Toprol XL] 25 mg tablet extended release 24 hr
12.5 mg PO DAILY PRN (Reason: tachycardia) Qty: 30 0RF
No Action
atorvastatin 20 MG tablet
20 mg PO HS
pantoprazole 40 MG tablet,delayed release (DR/EC)
40 mg PO DAILY
acetaminophen [Tylenol Extra Strength] 500 mg Tablet
1,000 mg PO BIDPRN PRN (Reason: mild pain)
mirtazapine 15 mg Tablet
15 mg PO HS
sevelamer carbonate 800 mg Tablet
800 mg PO AC
cholecalciferol (vitamin D3) 50 mcg (2,000 unit) Tablet
50 mcg PO HS
memantine 5 mg Tablet
5 mg PO BID
Patient Comments:
02/18/24: spouse is unsure of strength, last filled on 09/10/23 for 180 tablets
carvedilol 12.5 mg Tablet
12.5 mg PO SUMOWEFR@0800,1800
carvedilol 12.5 mg Tablet
12.5 mg PO TUTHSA@1800
hydrocodone-acetaminophen 5-300 mg tablet
0.5 tab PO Q4H PRN (Reason: Pain) Qty: 10 0RF
Interventions
Interventions:
*Risk Screen - Suicide Last Done: 09/14/24 14:21
*General Assessment Last Done: 09/14/24 14:21
*Neglect/Abuse Screening Last Done: 09/14/24 14:21
*ED COVID-19 Vaccine History Last Done: 09/14/24 14:21
ED- Cardiac Assessment Last Done: 09/14/24 14:35
ED- Pulmonary Assessment Last Done: 09/14/24 15:51
Discharge Date and Time
Print Language: CZECH
[2024-09-14 15:08] LABS: % Basophils 0.7 % (0-2); % Eosinophils 0.7 % (0-6); % Immature Granulocytes 0.8 % (0-0.5); % Lymphocytes 6.7 % (20.5-51.1); % Monocytes 6.3 % (1.7-9.3); % Neutrophils 84.8 % (42.2-75.2); Absolute Basophils 0.1 10^3/uL (0-0.2); Absolute Eosinophils 0.1 10^3/uL (0-0.7); Absolute Immature Granulocytes 0.1 10^3/uL (0-0.05); Absolute Lymphocytes 0.8 10^3/uL (1.2-3.4); Absolute Monocytes 0.8 10^3/uL (0.1-0.6); Absolute Neutrophils 10.2 10^3/uL (1.4-6.5); Hematocrit 30.7 % (37.0-47.0); Hemoglobin 9.4 g/dL (12.0-16.0); Mean Corp Hgb Conc. 30.6 g/dL (33.0-37.0); Mean Corpuscular Hgb 29.6 pg (27.0-31.0); Mean Corpuscular Volume 96.5 fL (81.0-99.0); Mean Platelet Volume 10.8 fL (7.4-10.4); Nucleated Red Blood Cells % 0.2 %; Platelet Count 212 10^3/uL (130-400); Red Blood Cell Count 3.18 10^6/uL (4.20-5.40); Red Cell Dist. Width 15.9 % (11.5-14.5)
[2024-09-14 15:18] LABS: INR 0.98; PT 13.3 Sec (11.4-14.6)
[2024-09-14 15:19] LABS: APTT 68.9 Sec (23.4-35.0)
[2024-09-14 15:20] VITALS: BP 94/61
[2024-09-14 15:21] VITALS: BMI 23.9
[2024-09-14 16:00] VITALS: BP 98/66
[2024-09-14 16:28] LABS: Blood Urea Nitrogen 11 mg/dl (7-17); Calcium 8.8 mg/dl (8.4-10.2); Carbon Dioxide 28 mmol/L (22-30); Chloride 95 mmol/L (98-107); Estimated Creatinine Clearance 14 ml/min; Glucose 155 mg/dl (70-99); Sodium 134 mmol/L (135-145); eGFR 22.95
[2024-09-14 16:32] VITALS: BP 92/72
[2024-09-14 17:05] VITALS: BP 97/55
== END 2024-09-14 17:24 | disposition home or self-care (01) ==
LOC: EMR 14:13
PROVIDERS: EMERGENCY PHYSICIAN Emergency Medicine; FAMILY PHYSICIAN Family Medicine
DX: I48.91 Unspecified atrial fibrillation (principal); I50.9 Heart failure, unspecified; I13.2 Hypertensive heart and chronic kidney disease with heart failure and with stage 5 chronic kidney disease, or end stage renal disease; N18.6 End stage renal disease; D63.1 Anemia in chronic kidney disease
CPT/HCPCS: 99285; 71046; 80048; 85025; 85610; 85730; 93005

== ENCOUNTER → 2024-09-22 10:46 | Outpatient (REF) | payer MEDICARE, SELFPAY ==
[2024-09-22 11:05] VITALS: BP 81/63; BP_SYST 100
[2024-09-22 11:35] VITALS: BP 82/56
[2024-09-22 12:18] LABS: Body Fluid pH 7.37
[2024-09-22 12:26] LABS: Body Fluid Mononuclear 66.9 %; Body Fluid Polymorphonuclear 33.1 %; Body Fluid WBC 329 /CUMM
[2024-09-22 12:30] LABS: Body Fluid Second Tech EM
[2024-09-22 14:16] LABS: Body Fluid Glucose 92 mg/dl; Body Fluid LDH 91 U/L
== END ==
LOC: RADI 10:46
PROVIDERS: Internal Medicine Critical Care Medicine; ATTENDING PHYSICIAN Nurse Practitioner; FAMILY PHYSICIAN Family Medicine
DX: J90 Pleural effusion, not elsewhere classified (principal); I48.19 Other persistent atrial fibrillation
CPT/HCPCS: 88305; 32555; 71045; 82945; 83615; 83986; 84157; 87015; 87070; 87102; 87116; 87205; 87206; 88112; 89051; 93225; 93226

== ENCOUNTER 2024-09-23 15:24 | Inpatient (IN) | payer MEDICARE, SELFPAY ==
[2024-09-23] VITALS (47 sets, daily range): BP systolic 55–121; BP diastolic 36–97; PULSE 2; BMI 24.0; BMI 21.9
[2024-09-23] MEDS: NSS 1000 IV ×2 (12:31→14:53)
[2024-09-23 12:39] LABS: % Basophils 0.1 % (0-2); % Immature Granulocytes 1.3 % (0-0.5); % Lymphocytes 2.8 % (20.5-51.1); % Monocytes 5.6 % (1.7-9.3); % Neutrophils 90.2 % (42.2-75.2); Absolute Immature Granulocytes 0.2 10^3/uL (0-0.05); Absolute Lymphocytes 0.4 10^3/uL (1.2-3.4); Absolute Monocytes 0.9 10^3/uL (0.1-0.6); Absolute Neutrophils 14.1 10^3/uL (1.4-6.5); Hemoglobin 10.4 g/dL (12.0-16.0); Mean Corp Hgb Conc. 29.7 g/dL (33.0-37.0); Mean Corpuscular Hgb 29.4 pg (27.0-31.0); Mean Corpuscular Volume 98.9 fL (81.0-99.0); Mean Platelet Volume 10.9 fL (7.4-10.4); Nucleated Red Blood Cells % 5.3 %; Platelet Count 257 10^3/uL (130-400); Red Blood Cell Count 3.54 10^6/uL (4.20-5.40); Red Cell Dist. Width 18.1 % (11.5-14.5); White Blood Cell Count 15.6 10^3/uL (4.8-10.8)
[2024-09-23 12:46] LABS: COVID-19 Antigen Negative (Negative)
[2024-09-23 12:56] LABS: Lactic Acid 4.1 mmol/L (0.7-2.0)
[2024-09-23 13:28] LABS: Venous Blood Gas B.E. -8.8 mmol/L (-4 to +4); Venous Blood Gas O2 Sat % 89.2 %; Venous Blood Gas pO2 66 mmHg (30-50)
[2024-09-23 13:33] LABS: Venous Blood Gas pCO2 87 mmHg (35-48); Venous Blood Gas pH 7.03 (7.32-7.43)
[2024-09-23 13:49] LABS: ALT (SGPT) 195 U/L (0-35); AST (SGOT) 188 U/L (14-36); Albumin 3.9 g/dl (3.5-5.0); Alkaline Phosphatase 160 U/L (38-126); Blood Urea Nitrogen 26 mg/dl (7-17); Calcium 8.1 mg/dl (8.4-10.2); Carbon Dioxide 21 mmol/L (22-30); Chloride 97 mmol/L (98-107); Glucose 104 mg/dl (70-99); Sodium 135 mmol/L (135-145); eGFR 9.71
--- NOTE | 2024-09-23 13:51 | ED.GENMED ---
History of Present Illness
General
Chief Complaint: Blood Pressure Problem
Source: patient
Exam Limitations: none
Time Seen by Provider: 09/23/24 11:45
History of Present Illness
History of Present Illness:
84-year-old female presents from home with family. Daughter works in healthcare and she has been taking care of her mother. She has end-stage renal disease and is on home dialysis 5 times a week for 2-1/2 hours. Over the past 2 days her cognition
has declined and her blood pressure is dropped. Daughter states she has been below her dry weight recently. No reported fever at home. They did stop all blood pressure medicines in the recent past. There has been no vomiting. Patient denies any
pain. No other complaints at this time
Past History
Past History
ED Past Medical History: Cancer (Left kidney Sine, ), CHF, GERD, HTN, Hypercholesterolemia, Renal failure (on HD //), Seizures, Psychiatric (Depression), Other (Alzheimer but patient is alert and able to answer questions. Sleep apnea but lost
weight and now gone Renal artery Aneurysm, Pul edema, Diverticulitis) and Other (GI bleeding Iron def. anemia, ); Negative CAD
ED Past Surgical History: Cholecystectomy, , Gynecological (Hysterectomy), Orthopedic (Dennis hip and knee replacements), Urological and Other (Cataracts)
Patient has exhibited threatening behavior?: No
PSI?: No
Social History
Tobacco: Non-smoker
Alcohol: Occasional
Drug: None
Personal:
Living: with family
Employment: Retired
Family History
Family History: Hypertension
Phy Exam
Physical Exam
Physical Exam:
General: Ill-appearing female
Heent: Normocephalic mucosa dry heart: Irregular rhythm but normal rate
Lungs: Breath sounds slightly diminished but may be due to respiratory effort
Abdomen is soft nontender nondistended
Extremities: Mild cyanosis of the fingertips and toes but no edema
Vascular: 2+ dorsalis pedis pulse bilateral feet
Neurologic exam alert responsive verbal stimuli oriented to person and place. No facial asymmetry
Course
Orders/Labs/Results
Orders:
Orders
09/23/24 12:01
0.9% Sodium Chloride 1000 ml [Nss] 1,000 ml IV BOLUS
09/23/24 12:02
CR Chest Portable - 1 View Urgent
Comment:
Reason For Exam: weakness
Reason Study Needs to be Portable: Patient Unstable
09/23/24 12:09
COVID-19 Antigen Urgent
Source: Nasal Swab
Complete Blood Count/With Diff Urgent
Lactic Acid Q4H
Comment: CANCEL 2nd LACTIC ACID IF 1st LACTIC ACID IS LESS THAN 2
Blood Culture Q30M
[place] Source: Blood/Venous
Specimen Description:
Blood Culture Q30M
[place] Source: Blood/Venous
Specimen Description:
Influenza A+B Rapid Molecular Urgent
[place] Source: Nasal Swab
Specimen Description:
09/23/24 12:10
CT Head W/o Iv Contrast Urgent
Comment:
Reason For Exam: change of mental status
09/23/24 12:56
Comprehensive Metabolic Panel Urgent
09/23/24 13:13
Venous Blood Gas Urgent
%Oxygen/Room Air: 82
09/23/24 14:00
Piperacillin/Tazo 3.375 Gram [Zosyn] 3.375 gram in 50 ml IV NOW
09/23/24 14:01
Vancomycin [Vancocin] 1,500 mg 0.9% Sodium Chloride 500 ml [Nss] 500 ml IV NOW
09/23/24 14:11
Midodrine [ProAmatine] 5 mg PO NOW STA
09/23/24 16:15
Lactic Acid Q4H
Comment: CANCEL 2nd LACTIC ACID IF 1st LACTIC ACID IS LESS THAN 2
Abnormal Lab Results
09/23/24 09/23/24 09/23/24
12:09 12:56 13:13
WBC 15.6 H 10^3/uL
(4.8-10.8)
RBC 3.54 L 10^6/uL
(4.20-5.40)
Hgb 10.4 L g/dL
(12.0-16.0)
Hct 35.0 L %
(37.0-47.0)
MCHC 29.7 L g/dL
(33.0-37.0)
RDW 18.1 H %
(11.5-14.5)
MPV 10.9 H fL
(7.4-10.4)
Abs Immat Gran (auto) 0.2 H 10^3/uL
(0-0.05)
Absolute Neuts (auto) 14.1 H 10^3/uL
(1.4-6.5)
Absolute Lymphs (auto) 0.4 L 10^3/uL
(1.2-3.4)
Absolute Monos (auto) 0.9 H 10^3/uL
(0.1-0.6)
Immature Gran % 1.3 H %
(0-0.5)
Neutrophils % 90.2 H %
(42.2-75.2)
Lymphocytes % 2.8 L %
(20.5-51.1)
VBG pH 7.03 L*
(7.32-7.43)
VBG pCO2 87 H* mmHg
(35-48)
VBG pO2 66 H mmHg
(30-50)
Chloride 97 L mmol/L
(98-107)
Carbon Dioxide 21 L mmol/L
(22-30)
BUN 26 H mg/dl
(7-17)
Creatinine 4.3 H* mg/dL
(0.6-1.0)
Glucose 104 H mg/dl
(70-99)
Lactic Acid 4.1 H* mmol/L
(0.7-2.0)
Calcium 8.1 L mg/dl
(8.4-10.2)
AST 188 H U/L
(14-36)
ALT 195 H U/L
(0-35)
Alkaline Phosphatase 160 H U/L
(38-126)
Total Protein 6.0 L g/dl
(6.3-8.2)
09/23/24 12:09
09/23/24 12:56
Vital Signs
Initial and Last Documented VS:
Initial Vital Signs
Resp BP
18 96/36
09/23/24 11:13 09/23/24 11:13
Last Documented Vital Signs
Temp Pulse Resp BP Pulse Ox
95.5 F L 84 14 60/46 100
09/23/24 12:10 09/23/24 14:16 09/23/24 14:00 09/23/24 14:16 09/23/24 13:45
MDM/Problems Addressed
Differential Diagnosis Includes:
Patient per family his having a cognitive decline with associated with hypotension at home. They cut home dialysis short today and came here. Not currently on any antihypertensive medications. No reported fever. Will initiate workup with labs
cultures patient does not make urine. Will administer oxygen support as needed. Initially she was on nasal cannula oxygen switched to high flow that ultimately as a VBG came back hypercapnia, she was switched to BiPAP by respiratory. CT of the
head is pending. Patient will require admission to hospital for hypotension and respiratory failure.
*Critical Care Note
Total Time (30-74mins, 75-104mins- exclusive of procedures): Not Applicable
comment:
Please allow for 35 minutes of critical care time between discussing with specialist rechecking vital signs discussing with family treatment options.
Update Note
Update Note:
Patient reexamined multiple times. Still hypotensive. Noted to be hypercapnic on VBG with a pH is 7.03. Chest x-ray shows no obvious finding. Patient is still unstable here. Receiving fluids. Midodrine ordered also for hypotension. Vancomycin
and Zosyn ordered. Discussed with emergency room attending saw the patient as well. Will admit to hospital. Vancomycin Zosyn ordered for concern of sepsis given hypotension hypothermia and lactic acidosis with leukocytosis.
ED Attending Note
-
Portions of this chart may have been created with voice recognition software.� Occasional wrong word or��sound alike� substitutions may have occurred due to the inherent limitations of voice recognition software.
Discharge Plan
Departure
Patient Disposition: Admit
Date of Disposition: 09/23/24
Time of Disposition: 14:20
Presentation/result/management discussed w/ accepting MD/DO: Hospitalist
Discharge Problem:
Sepsis
Prescriptions:
No Action
atorvastatin 20 MG tablet
20 mg PO HS
pantoprazole 40 MG tablet,delayed release (DR/EC)
40 mg PO DAILY
acetaminophen [Tylenol Extra Strength] 500 mg Tablet
1,000 mg PO BIDPRN PRN (Reason: mild pain)
mirtazapine 15 mg Tablet
15 mg PO HS
cholecalciferol (vitamin D3) 50 mcg (2,000 unit) Tablet
50 mcg PO HS
midodrine 2.5 mg Tablet
2.5 mg PO BIDPRN PRN (Reason: LO BLOOD PRESSURE)
melatonin 5 mg Tablet
5 mg PO HSPRN PRN (Reason: insomnia)
memantine 7 mg Capsule,Sprinkle,Er 24hr
7 mg PO DAILY
metoprolol succinate [Toprol XL] 25 mg tablet extended release 24 hr
12.5 mg PO DAILYPRN PRN (Reason: tachycardia)
Referrals:
Padmini Thompson MD [Family Provider] -
Interventions
Interventions:
*Risk Screen - Suicide Last Done: 09/23/24 11:13
*General Assessment Last Done: 09/23/24 11:13
*Neglect/Abuse Screening Last Done: 09/23/24 11:40
ED- Fall Risk Assessment Last Done: 09/23/24 11:40
*ED COVID-19 Vaccine History Last Done: 09/23/24 11:13
ED- Cardiac Assessment Last Done: 09/23/24 11:40
ED- Neurological Assessment Last Done: 09/23/24 11:40
ED- Pulmonary Assessment Last Done: 09/23/24 11:40
Discharge Date and Time
Print Language: [id number]
[2024-09-23] MEDS: ZOSYN 50 IV (14:16)
[2024-09-23] MEDS: ProAmatine 5 MG PO (14:16)
--- NOTE | 2024-09-23 14:40 | HPS.HSE ---
Family Physician
-
Family Physician: Padmini Thompson
Chief Complaint
-
Lethargic, hypotensive, hypoxic
History of Present Illness
84-year-old female from home with family and daughter who works in healthcare who has been taking care of her mother. She has history of end-stage renal disease and is on home dialysis 5 times a week for 2-1/2 hours. Over the past 2 days she has
had a cognitive decline with hypotension her blood pressure is noted to be 60 over 30s here in the ER , hypothermic at 95F.,Hypoxic and hypercapnic on BiPAP here with elevated lactic acid of 4.1. Daughter states she has been below her dry weight
recently with no fever at home. Her daughter states she did give her 1 hour of dialysis today including 100 cc bolus of IV fluids due to hypotension but then pressures became extremely low with systolic over 80s so she decided to call EMS to bring
her to the hospital for evaluation. They did not stop all of her blood pressure medications in the recent past. She is currently on palliative care with family considering hospice. Discussion was had with Dr. Oseguera and the patient's daughter at
bedside they would like central line with attempt of IV pressors/fluids but patient will be DNR. They are unable to do PICC line due to prior AV fistulas left and right arms. She currently has a dialysis catheter to her right upper chest wall. IR
will be consulted for central line and Levophed may be started if can temporarily be started through the venous port of the dialysis catheter if needed until IR is able to place central line today. The patient is currently restless in bed she
responds to her name but thinks she is at home she is grabbing at the bear hugger she is unable to give any review of systems or history.
She has a past medical history ESRD on hemodialysis, chronic anemia, HTN, dementia, renal cell carcinoma status post nephrectomy, diverticular bleed requiring 1 unit of blood for hemoglobin of 7.1 January/February 2024.
Medical History
Past Medical History
Past Medical History: Reports Other
Additional Past Medical History:
Past medical history reviewed:
End-stage renal disease on hemodialysis 5 days a week does not make urine
Status post left-sided nephrectomy and right kidney was not well developed according to the hospital
Dementia-advanced
Hypertension
Diverticulosis and diverticular bleed in the past February 2024
Diverticulitis
History of Schatzki's ring with dilatation
Chronic diastolic congestive heart failure
T4 compression fracture
History of melanoma
Anemia of chronic kidney disease
Past Surgical History: Reports Other
Additional Past Surgical History:
Surgical history:
Cholecystectomy
Hemorrhoidectomy
Bilateral hip replacement
Bilateral knee replacement
Breast reduction
Left robotic nephrectomy for renal cell carcinoma
Wide excision of melanoma of right leg right upper extremity fistulogram right upper extremity AV fistula and graft placement
Left upper extremity AV graft placement
Social History
Unable to obtain full social history at this time due to: Other
Alcohol: None
Drug: None
Personal:
Living: With Family ()
Employment: Retired
Family History
Family History: Unable to Obtain and Other
Allergies / Home Medications
Allergies reflects when Allergies were last updated in [facility].
Home Medications with original date entered in [facility]
Allergy/Medication List:
Allergies
Allergy/AdvReac Type Severity Reaction Status Date / Time
cephalexin [Cephalexin] Allergy Unknown - Verified 09/23/24 11:16
tolerated
periop
cefazolin
06/2020
Quinolones Allergy SEIZURE Verified 09/23/24 11:16
sulfamethoxazole Allergy Itching Verified 09/23/24 11:16
trimethoprim Allergy Unknown Verified 09/23/24 11:16
Home Medications
atorvastatin 20 mg tablet 20 mg PO HS High cholesterol 08/19/19
pantoprazole 40 mg tablet,delayed release 40 mg PO DAILY Gastrointestinal issue 04/17/20
acetaminophen 500 mg tablet (Tylenol Extra Strength) 1,000 mg PO BIDPRN PRN mild pain 02/18/24
cholecalciferol (vitamin D3) 50 mcg (2,000 unit) tablet 50 mcg PO HS Supplement 02/18/24
mirtazapine 15 mg tablet 15 mg PO HS Mental Health/Anxiety 02/18/24
melatonin 5 mg tablet 5 mg PO HSPRN PRN insomnia 09/21/24
midodrine 2.5 mg tablet 2.5 mg PO BIDPRN PRN LO BLOOD PRESSURE 09/21/24
memantine 7 mg capsule sprinkle,extended release 24hr 7 mg PO DAILY 09/23/24
metoprolol succinate 25 mg tablet,extended release 24 hr (Toprol XL) 12.5 mg PO DAILYPRN PRN tachycardia 09/23/24
Review of Systems
-
History Source: Family (Daughter at bedside)
A 12 point ROS was completed and negative except as noted: Yes
Constitutional: Reports Fever (Hypothermia); Denies Chills
EENT: Reports Other (Increased confusion over the past 2 days per daughter from baseline dementia)
Respiratory: Denies Cough or Trouble Breathing
Cardiac: Denies Syncope
Abdomen/GI: Denies Abdominal Pain, Vomiting or Diarrhea
: Reports Other (Patient does not make urine)
Musculoskeletal: Reports Other (Right upper chest wall dialysis catheter, multiple old dialysis fistulas left and right upper arms, left upper arm to infiltrated IVs of normal saline solution present on admission); Denies Joint Pain or Edema
Skin: Denies Itching or Rash
Neurological: Denies Dizzy or Headache
Endocrine: Reports No Symptoms
Hematologic/Lymphatic: Reports No Symptoms
Psych: Reports Anxiety (Pulling at Cherri hugger)
Physical Exam
Vital Signs
Vital Signs
Temp Pulse Resp BP Pulse Ox
96.5 F L 84 27 60/46 100
09/23/24 14:15 09/23/24 14:16 09/23/24 14:15 09/23/24 14:16 09/23/24 13:45
Physical Exam
General: Fever (Hypothermia) and Other (Patient confused mumbles cannot follow commands); No Pain
HEENT: NormoCephalic, Anicteric, PERRLA, [place] Conjunctivae and No Ptosis
Respiratory: Clear; No Wheezes, Rales or Rhonchi
Cardiac: S1/S2 and Regular Rhythm; No Murmur, Rub, Gallop or Peripheral Edema
GI: Soft, Non Tender, Non Distended, Normal Bowel Sounds and No Hepatosplenomegaly
Rectal: Deferred by Provider
Genito-urinary: Deferred by me
Musculoskeletal: No Clubbing, No Cyanosis and No Edema
Skin: Warm, Dry and Other (Right upper chest wall dialysis catheter, multiple old dialysis fistulas left and right upper arms, left upper arm to infiltrated IVs of normal saline solution present on admission)
Neuro: Cranial Nerves Intact and Other (Patient confused mumbles cannot follow commands); No Slurred Speech, Facial Droop or Tremors
Psych: Agitated (Pulling at Cherri hugger)
Laboratory Results
-
09/23/24 12:09
09/23/24 12:56
Laboratory Results
Lactic Acid 4.1 mmol/L (0.7-2.0) H* 09/23/24 12:09
Total Bilirubin 1.0 mg/dl (0.2-1.3) 09/23/24 12:56
AST 188 U/L (14-36) H 09/23/24 12:56
ALT 195 U/L (0-35) H 09/23/24 12:56
Alkaline Phosphatase 160 U/L (38-126) H 09/23/24 12:56
Impression/Plan
-
Impression/plan:
Admit to ICU
#Septic shock/hypothermia unclear etiology
WBC 15.6 with left shift, 96.5F
COVID/flu negative-negative
-Blood cultures x 2
-Daughter has been holding Toprol XL 12.5 mg daily
-Patient on midodrine 2.5 mg twice daily as needed hypotension
-IV 1 L NSS bolus given in ER, IV Levophed drip
-Midodrine 5 mg now given in ER
-- IV vancomycin, IV Zosyn
-Consult IR for central line placement
-Consult home specialist
-Check lactic acid
-Consult speech therapy okay for p.o. meds if tolerated
CXR: No active cardiopulmonary disease
#Hypotension secondary to septic shock/volume depletion
BP 60/46
-Consult IR for central line placement
Hold metoprolol 12.5 mg daily
-IV Levophed drip
#Acute hypoxic respiratory failure secondary to septic shock
Acute metabolic acidosis
-Patient is restless trying to pull off BiPAP family wants BiPAP removed and only high flow as they want comfort
#Hx pulm HTN-Per echo 08/30/2022 pulmonary arterial pressure 65-70 mmHg
#Acute hypothermia 2/2 sepsis
Temp 95.5
-Continue Cherri hugger with parameters
#ESRD
On home dialysis 5 days a week
Patient not on urine producing
Creat 4.6
-Consult Dr. Oseguera
#Hx renal cell carcinoma status post right nephrectomy
#Dementia-advanced
Anxiety
Continue memantine 7 mg daily, mirtazapine 15 mg at bedtime
#Acute transaminitis likely secondary to sepsis
AST 188, ALT 195, alk phos 160
-Hold statin
Chronic diastolic heart failure
I/O, daily weights
No diuretics listed
2D echo 08/30/2022: EF 55 to 60%, no wall abnormalities, stage II diastolic dysfunction, severely dilated left atrium/right atrium mild mitral stenosis mild mitral regurg, moderate to severe TR pulmonary arterial pressure 65-70 mmHg
GERD
Continue IV Protonix [address] of p[address]
#Chronic anemia
Hgb 10.4-appears baseline
#History of diverticular bleed February 2024
That hemoglobin is 7.1 will transfuse 1 unit
DVT prophylaxis
Subcu heparin
DNR per daughter at bedside
--- NOTE | 2024-09-23 14:48 | W.PN.UPDATE ---
Update Note
Progress Note Update
This is an addendum to H&P written by FINAL BLOCK PRESS OPERATOR Becky Bates
I saw and examined the patient.
The FINAL BLOCK PRESS OPERATOR's note was reviewed and I agree with the note.
Comment:
Ms. Roberta Lr is a 84 yo woman with hx dementia, CHF, GERD, HTN, HLD, ESRD on HD, who presents to the ER complaining of depressed mentation and low blood pressure. She is hypotensive to systolic 60's with evidence of hypoxic and hypercarbic
respiratory failure.
Triage VS: T 95.5, P 84, RR 18, BP 96/36, SpO2 100%
On exam patient was seen on BiPAP, more awake and alert and wanting it off. Lungs clear. no LE swelling.
LABS: WBC 15.6, Hg 10.4, PLT 257, Na 135, K+ 4.0, Cl 97, CO2 21, BUN 26, Cr 4.3, Lactate 4.1, Glucose 104, T. Bili 1, AST 188, ALT 195, Alk Phos 160
AB.03/87/66
Covid Negative
Influenza Negative
CXR
IMPRESSION:
No active cardiopulmonary disease.
Septic Shock
Hypotension
ESRD on HD
Hypoxic and Hypercarbic Respiratory Failure
Severe Dementia
-patient is critically ill and hypotensive. Levophed ordered, IR to place central line; she has b/l fistulas. Mentation improved on BIPAP but patient uncomfortable and decision made to transition to high flow. Per discussion with family at
bedside, if patient's oxygen declines or she becomes more lethargic on high flow we will not place back on BiPAP and transition to comfort (as she was not comfortable on BiPAP). She is DNI and DNR but family not ready for comfort care at this point
-admit to ICU
-IR consult for central line
-Levophed
-continue Vanc/Zosyn
-F/U VBG now
-F/U cultures
-continued GOC discussions
-Systems Applications Programming Lead consult
-Renal Consult
-NPO, ST Eval
Total Critical Care Time 50 minutes. I was immediately available to the patient and staff. I personally examined, reviewed labs, diagnostic images/reports, interpretations, treatment plans, discussed patient care with other providers and family
or caregivers (if patient is unable to make decisions), entered orders as appropriate and documented the medical record.
[2024-09-23] MEDS: LEVOPHED 250 IV ×3 (15:01→21:00)
--- NOTE | 2024-09-23 15:03 | W.CON.NEPH ---
Addendum entered and electronically signed by Gavino Oseguera MD 09/23/24 15:20:
This should be the correct history of present illness
84-year-old female well-known to us for hemodialysis at home provide by her daughter via a dialysis catheter in the left IJ. She has mild baseline dementia. She does have usual hypertension but her blood pressures have been lower lately as they
have been trying to challenge her weight she typically has issues with volume. Her hyperphosphatemia is controlled with binder therapy. She was in the emergency room last week with episode of atrial fibrillation which was treated conservatively.
She had right thoracentesis performed yesterday for 850 cc. Afterwards her daughter says that she was extremely fatigued and wiped out. Today that started dialysis and about 1 hour in he was clear that the patient was doing worse with more
lethargy. Dialysis treatment was terminated and she was brought to the emergency room. Here she was noted to have severe hypotension with a systolic blood pressure in the 60s. ABG performed disclose hypercarbia as well as hypoxemia. The family
did not wish aggressive measures and so BiPAP was started. Initially they had not wanted a central line but have now agreed in order to allow for some more time before deciding further care issues. She has already received 1 L of saline and her
blood pressures remain reduced. She is currently critically ill
Original Note:
Consultation
-
Date/Time Consultation Requested: 09/23/2024 2 PM
Date/Time Consultation Performed: 09/23/2024 3 PM
Requesting Provider: Edgardo Voss
Performing Provider: Dr. Oseguera
Reason for Consultation: ESRD
Medical History
-
Chief Complaint: ESRD
History of Present Illness:
84-year-old female with multiple comorbidities including end-stage renal disease [facility] diverticulosis and diverticulitis, dyslipidemia, hypertension (maintained on coreg), hyperphosphatemia (maintained on
sevelamer), dementia who lives at home with her , presented to the hospital after she had 3 episodes of the pain was fresh rectal bleed started earlier this afternoon, denies any abdominal pain or any chest pain or shortness of breath or any
changes stool color in the last few day, no nausea or hematemesis. Denies taking any NSAIDs and she is not on any anticoagulant or antiplatelet. On presentation her hemoglobin was 8.7
Past Medical History
ESRD
Hypertension
Hyperphosphatemia
Dementia
Hyperlipidemia
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
Atrophic right kidney.
Right renal artery stenosis.
Multiple AV access procedures with AV graft. now with permanent catheter
Hypertension.
Secondary hyperparathyroidism.
Dementia.
GI bleed.
GERD.
Depression.
Osteopenia.
Bilateral hip replacement.
Bilateral knee replacement.
section.
Cholecystectomy.
Sleep apnea.
Social History
No tobacco or alcohol
Family History
No chronic kidney disease
Allergies / Home Medications
Allergy/AdvReac Type Severity Reaction Status Date / Time
cephalexin [Cephalexin] Allergy Unknown - Verified 09/23/24 11:16
tolerated
periop
cefazolin
06/2020
Quinolones Allergy SEIZURE Verified 09/23/24 11:16
sulfamethoxazole Allergy Itching Verified 09/23/24 11:16
trimethoprim Allergy Unknown Verified 09/23/24 11:16
�Medication �Instructions �Recorded �Confirmed �Type
atorvastatin 20 mg tablet 20 mg PO HS High cholesterol 08/19/19 09/23/24 History
pantoprazole 40 mg tablet,delayed 40 mg PO DAILY Gastrointestinal 04/17/20 09/23/24 History
release issue
acetaminophen 500 mg tablet 1,000 mg PO BIDPRN PRN mild pain 02/18/24 09/23/24 History
(Tylenol Extra Strength)
cholecalciferol (vitamin D3) 50 50 mcg PO HS Supplement 02/18/24 09/23/24 History
mcg (2,000 unit) tablet
mirtazapine 15 mg tablet 15 mg PO HS Mental Health/Anxiety 02/18/24 09/23/24 History
melatonin 5 mg tablet 5 mg PO HSPRN PRN insomnia 09/21/24 09/23/24 History
midodrine 2.5 mg tablet 2.5 mg PO BIDPRN PRN LO BLOOD 09/21/24 09/23/24 History
PRESSURE
memantine 7 mg capsule 7 mg PO DAILY 09/23/24 09/23/24 History
sprinkle,extended release 24hr
metoprolol succinate 25 mg 12.5 mg PO DAILYPRN PRN tachycardia 09/23/24 09/23/24 History
tablet,extended release 24 hr
(Toprol XL)
Review of Systems
-
no CP/SOB
All other systems: Negative unless noted
Physical Exam
Vital Signs
Vital Signs
Temp Pulse Resp BP Pulse Ox
96.5 F L 84 27 60/46 100
09/23/24 14:15 09/23/24 14:16 09/23/24 14:15 09/23/24 14:16 09/23/24 13:45
Lab Results
WBC 15.6 10^3/uL (4.8-10.8) H 09/23/24 12:09
RBC 3.54 10^6/uL (4.20-5.40) L 09/23/24 12:09
Hgb 10.4 g/dL (12.0-16.0) L 09/23/24 12:09
Hct 35.0 % (37.0-47.0) L 09/23/24 12:09
Plt Count 257 10^3/uL (130-400) 09/23/24 12:09
Sodium 135 mmol/L (135-145) 09/23/24 12:56
Potassium 4.0 mmol/L (3.5-5.1) 09/23/24 12:56
Chloride 97 mmol/L (98-107) L 09/23/24 12:56
Carbon Dioxide 21 mmol/L (22-30) L 09/23/24 12:56
BUN 26 mg/dl (7-17) H 09/23/24 12:56
Creatinine 4.3 mg/dL (0.6-1.0) H* 09/23/24 12:56
eGFR 9.71 09/23/24 12:56
Glucose 104 mg/dl (70-99) H 09/23/24 12:56
Calcium 8.1 mg/dl (8.4-10.2) L 09/23/24 12:56
Albumin 3.9 g/dl (3.5-5.0) 09/23/24 12:56
Laboratory Tests
09/23/24 09/23/24 09/23/24
12:09 12:56 13:13
VBG pH 7.03 L*
VBG pCO2 87 H*
VBG pO2 66 H
VBG HCO3 23.0
Lactic Acid 4.1 H*
AST 188 H
ALT 195 H
Physical Exam
Patient is awake alert oriented and in no distress. Mood and affect were pleasant, insight and judgment were good. Pupils are equal round and reactive to light, extraocular movements are intact, sclera were anicteric. Hearing was normal, ears and
nose are intact. Oropharynx was clear. Neck was supple with trachea midline and no thyromegaly. Heart was regular rate and rhythm without rubs. Lower extremities without edema. Lungs were clear to auscultation bilaterally and with normal excursion
but with overall decreased breath sounds. Abdomen was soft, nontender, with normal active bowel sounds, and no hepatosplenomegaly. Skin was without rash and with normal turgor.
Data Reviewed
-
Radiology: Image Personally Visualized and interpreted (Chest x-ray 09/23/2024 by my reading shows no acute disease, mild flattening right hemidiaphragm, no pneumothorax)
Medical Tests (Nuc Med, Echo etc): Image Personally Visualized and interpreted (EKG 09/14/2024 by my reading atrial fibrillation rapid ventricular rate inferolateral ST-T wave abnormality) and Other (Telemetry strip with atrial fibrillation rate
controlled)
Labs: Labs Reviewed by me
Old Records: Reviewed
Assessment/Plan
-
Impression:
ESRD TTS status post 1 hour dialysis today at home
Hypotension
Rectal bleed
Anemia
Hyperphosphatemia
Secondary hyperparathyroidism
Hypertension
Dementia
History of renal cell carcinoma status post right nephrectomy
History of multiple joint replacements
Shock liver
Leukocytosis
Hypercarbia, hypoxemia
Plan:
Prognosis is grim. Discussed with length with her daughter. She is DNR/DNI.
They are okay trying pressors to see if we might be able to improve her respiratory status with BiPAP.
Okay to use dialysis catheter venous line until central access may be secured
Bolus 1 more liter IV fluids saline
They do not wish any more aggressive measures other than central access
Critical care time spent 40 minutes
[2024-09-23] MEDS: VANCOCIN 530 MG IV (15:52)
[2024-09-23 15:59] LABS: Venous Blood Gas B.E. -9.1 mmol/L (-4 to +4); Venous Blood Gas HCO3 21.9 mmol/L (22-27); Venous Blood Gas O2 Sat % 91.5 %; Venous Blood Gas pO2 69 mmHg (30-50)
[2024-09-23 16:01] LABS: Venous Blood Gas pCO2 79 mmHg (35-48); Venous Blood Gas pH 7.05 (7.32-7.43)
[2024-09-23 16:11] LABS: Lactic Acid 2.1 mmol/L (0.7-2.0)
--- NOTE | 2024-09-23 16:16 | PTCARENOTE ---
Pt aware she will be due to void next hour. Paddle signal improved.
--- NOTE | 2024-09-23 16:37 | CON.INTV ---
Consultation
Consultation Request
Date/Time Consultation Requested: 09/23
Date/Time Consultation Performed: 09/23
Reason for Consultation: Critical care
Medical History
-
History of Present Illness:
History obtained from the patient and reviewing the chart. History also obtained speaking with the and the daughter who takes care of her and manages her medical needs at home. Daughter is an ED nurse with extensive experience.
84-year-old female with history of end-stage renal disease on dialysis 5 times a week, renal cancer, Alzheimer's disease, who presents from home with decreased blood pressure, mental status changes. There is no clear history of abdominal pain,
emesis, diarrhea or fevers. She did fall on [place], injured her right shoulder. She also had a recent right thoracentesis, with some mild improvement post thoracentesis but not significant. Daughter also states that patient has had
cyanosis of her fingertips and legs prior to admission. Upon arrival to [facility], temperature 95.5, pulse 84, breathing at 18, pressure 96/36, 100% saturation. Blood pressure progressed, developed hypotension with blood pressure 60/46.
Patient was given oxygen therapy, transition to high flow then BiPAP then back to high flow while in the ED. Patient given vancomycin and Zosyn. Patient also found to have leukocytosis and elevated lactate. We are asked to help from critical care
standpoint
.
PMH: History of left renal cancer with left nephrectomy, hypertension, hypercholesterolemia, heart failure, GERD, end-stage renal disease on hemodialysis, seizure disorder, Alzheimer's dementia, history of diverticulitis. History of
cholecystectomy, , hysterectomy, bilateral hip and knee replacements
Past Medical History
Past Medical History: None (See above)
Past Surgical History: None (See above)
Social History
Tobacco: Non-smoker
Alcohol: Occasional
Drug: None
Personal:
Living: With Family
Employment: Retired
Family History
Family History: Unable to Obtain
Allergies / Home Medications
Allergies
Allergy/AdvReac Type Severity Reaction Status Date / Time
cephalexin [Cephalexin] Allergy Unknown - Verified 09/23/24 11:16
tolerated
periop
cefazolin
06/2020
Quinolones Allergy SEIZURE Verified 09/23/24 11:16
sulfamethoxazole Allergy Itching Verified 09/23/24 11:16
trimethoprim Allergy Unknown Verified 09/23/24 11:16
Home Medications
�Medication �Instructions �Recorded �Confirmed �Last Taken �Type
atorvastatin 20 mg tablet 20 mg PO HS High cholesterol 08/19/19 09/23/24 02/21/24 History
pantoprazole 40 mg tablet,delayed 40 mg PO DAILY Gastrointestinal 04/17/20 09/23/24 02/22/24 History
release issue
acetaminophen 500 mg tablet 1,000 mg PO BIDPRN PRN mild pain 02/18/24 09/23/24 2 Days Ago History
(Tylenol Extra Strength) ~02/16/24
cholecalciferol (vitamin D3) 50 50 mcg PO HS Supplement 02/18/24 09/23/24 02/21/24 History
mcg (2,000 unit) tablet
mirtazapine 15 mg tablet 15 mg PO HS Mental Health/Anxiety 02/18/24 09/23/24 02/21/24 History
melatonin 5 mg tablet 5 mg PO HSPRN PRN insomnia 09/21/24 09/23/24 Unknown History
midodrine 2.5 mg tablet 2.5 mg PO BIDPRN PRN LO BLOOD 09/21/24 09/23/24 Unknown History
PRESSURE
memantine 7 mg capsule 7 mg PO DAILY 09/23/24 09/23/24 Unknown History
sprinkle,extended release 24hr
metoprolol succinate 25 mg 12.5 mg PO DAILYPRN PRN tachycardia 09/23/24 09/23/24 Unknown History
tablet,extended release 24 hr
(Toprol XL)
Review of Systems
-
All other systems: Negative unless noted
Vitals / Labs / Diagnostic Testing
Vital Signs
Temp Pulse Resp BP Pulse Ox
96.5 F L 92 20 85/51 100
09/23/24 14:15 09/23/24 16:00 09/23/24 16:00 09/23/24 16:00 09/23/24 16:00
Lab Data
09/23/24 12:09
09/23/24 12:56
Microbiology
09/23/24 12:09 Nasal Swab Influenza Types A & B (MOISE) - Final
Negative for Influenza A & B, NAAT
Negative results must be combined with clinical observations
and patient history.
Nucleic Acid Amplification test (NAAT)performed on the
[employer] platform.
Diagnostic Testing:
Physical Exam
-
HEENT: Normocephalic, Anicteric and Other (Right upper chest HD catheter. Chronic scarring bilateral upper extremities from prior AV fistula. Right groin central line)
Cardiovascular: S1/S2, Regular Rhythm, Murmur (n), Rub (n) and Peripheral Edema (n)
Respiratory: Wheeze (n), Rales (n), Rhonchi (n) and Non-Labored Respirations
GI: Soft, Non Distended and Non Tender
Neurology: Awake, Alert and No Motor Deficits (Generally weak, moves extremities)
Skin: Other (Pallorous) and Other (Peripheral cyanosis )
Assessment
-
84-year-old female with complex medical history, end-stage renal disease on HD, history of renal cell cancer status post left nephrectomy, presents with mental status changes, hypotension. Admitted to ICU
Septic shock
Requiring pressors
Acute hypoxic respiratory insufficiency, requiring high flow
Did not tolerate BiPAP
Hypothermia
Leukocytosis
Acute transaminitis
Severe pulm hypertension, PA pressure 70
Normal biventricular function
Per echo 2022
Chronic atrial fibrillation
Right pleural effusion status post thoracentesis 09/22/2024
850 cc removed, transudate
Recent fall 4 weeks ago, right shoulder injury
History of multiple falls I know she has a history of recurrent GI bleed last 1 year ago but was just going to give 1 dose for now
Conditions present prior to admission
ESRD, HD 5 days a week
On midodrine
History of renal cell cancer, left nephrectomy 2019
Advanced Alzheimer's dementia
GERD
History of anemia
History of diverticular bleed 2023
History of sleep apnea, not on CPAP since weight loss
DNR, has been on palliative care
Plan/recommendations
At this time, patient remains critically ill requiring pressors despite IV fluids. End-stage renal disease with noted, limiting our ability to fluid resuscitate
Chest x-ray 09/23/2024 with questionable left lower lobe pneumonia, atelectasis
Peripheral cyanosis noted on exam
Chest x-ray without any acute findings
Decreased breath sounds on exam
Moving forward
Complex medical history as noted
Salient features are hypotension, hypoxia within normal chest x-ray
Differential includes sepsis, thromboembolic disease, RV failure
Will obtain echocardiogram, Doppler study
Will give 1 dose of Lovenox. History of GI bleed noted
Hold off on head CT for now, patient is mentating appropriately
Hold off on CT chest imaging for now
Patient has received 2 L of fluid and remains hypotensive
Will start stress dose steroids although daughter states she has not been on steroids over the last year. Nephrectomy noted
Agree with empiric antibiotics. Currently on Zosyn/vancomycin
Family is realistic, daughter is aware of multiple comorbidities and poor prognosis overall
Comfort is a priority as well
Reviewed at length with critical care nursing, respiratory care
Reviewed with daughter,
reviewed with primary service, nephrology. Patient well-known to Dr. Oseguera
TCCT 40 min
--- NOTE | 2024-09-23 16:58 | PTCARENOTE ---
Addendum entered by Sindhu Botello RN 09/23/24 17:23:
per daughter ok to take bp in left arm.
Original Note:
pt received from er- pt drowsy, knows name and at hospital but not which one. pt unable to answer admission questions due to disorientation, pt with dementia at baseline. pt on 50L 100% HFNC sats 97%. auscultated pts lung, severely diminished. ekg
completed afib on monitor. pt with no s/s of distress or pain at this time. levophed running to maintain systolic >90 through right fem central line. pt with right arm fistula nonfunctioning. left chest wall dialysis port c/d/i. pt with dusky and
mottled hands and feet. Dr. Elena at bedside- ordered to hold cat scan at this time, also ordered restraints for pt pulling at lines and oxygen off. all safety precautions in place.
[2024-09-23] MEDS: SOLU-CORTEF 50 MG IV (17:18)
[2024-09-23 17:38] LABS: Hematocrit 32.2 % (37.0-47.0); Hemoglobin 9.7 g/dL (12.0-16.0); Mean Corp Hgb Conc. 30.1 g/dL (33.0-37.0); Mean Corpuscular Hgb 29.6 pg (27.0-31.0); Mean Corpuscular Volume 98.2 fL (81.0-99.0); Mean Platelet Volume 10.3 fL (7.4-10.4); Platelet Count 220 10^3/uL (130-400); Red Blood Cell Count 3.28 10^6/uL (4.20-5.40); Red Cell Dist. Width 17.2 % (11.5-14.5); White Blood Cell Count 16.9 10^3/uL (4.8-10.8)
[2024-09-23 17:49] LABS: INR 1.16; PT 15.4 Sec (11.4-14.6)
[2024-09-23 17:51] LABS: APTT 59.7 Sec (23.4-35.0)
[2024-09-23 17:54] LABS: Magnesium 1.8 mg/dl (1.6-2.3); Phosphorus 5.8 mg/dl (2.5-4.5)
[2024-09-23] MEDS: HEPARIN 25000 UNITS/250 ML IV (18:04)
--- NOTE | 2024-09-23 19:51 | PTCARENOTE ---
Discussed with daughter, river JANE and this RN if pt needed an A-line, would they like it placed. Pt daughter states they would not want an [place].
[2024-09-23 19:52] LABS: Lactic Acid 1.2 mmol/L (0.7-2.0)
[2024-09-23] MEDS: PITRESSIN 100 IV (21:38)
--- NOTE | 2024-09-23 21:45 | PTCARENOTE ---
ICU GREENHOUSE MANAGER Casey notified about pts low BP. Pt on levo @ 18 mcgs. Daughter notified. Vaso added @ 0.04 units.
[2024-09-23] MEDS: HALDOL 2 MG IV (23:19)
[2024-09-24] VITALS (86 sets, daily range): BP systolic 65–151; BP diastolic 15–115; BMI 21.9
[2024-09-24] MEDS: SOLU-CORTEF 50 MG IV ×5 (00:04→23:38)
[2024-09-24 01:01] LABS: APTT > 200 Sec (23.4-35.0)
[2024-09-24] MEDS: ZOSYN 50 IV ×2 (01:01→12:41)
[2024-09-24] MEDS: LEVOPHED 250 IV ×4 (01:01→19:42)
--- NOTE | 2024-09-24 04:36 | PTCARENOTE ---
Systems reviewed, no new changes in assessment. AM labs provided. CHG bath provided. Q2T. Gtts maintained (see worklist). Safe environment.
[2024-09-24 04:51] LABS: % Basophils 0.1 % (0-2); % Immature Granulocytes 1.7 % (0-0.5); % Lymphocytes 1.3 % (20.5-51.1); % Monocytes 4.5 % (1.7-9.3); % Neutrophils 92.4 % (42.2-75.2); Absolute Immature Granulocytes 0.4 10^3/uL (0-0.05); Absolute Lymphocytes 0.3 10^3/uL (1.2-3.4); Absolute Neutrophils 19.5 10^3/uL (1.4-6.5); Hemoglobin 9.7 g/dL (12.0-16.0); Mean Corp Hgb Conc. 28.5 g/dL (33.0-37.0); Mean Corpuscular Hgb 28.6 pg (27.0-31.0); Mean Corpuscular Volume 100.3 fL (81.0-99.0); Mean Platelet Volume 10.2 fL (7.4-10.4); Nucleated Red Blood Cells % 8.7 %; Platelet Count 242 10^3/uL (130-400); Red Blood Cell Count 3.39 10^6/uL (4.20-5.40); Red Cell Dist. Width 17.3 % (11.5-14.5); White Blood Cell Count 21.1 10^3/uL (4.8-10.8)
[2024-09-24] MEDS: PITRESSIN 100 IV ×2 (05:05→12:40)
[2024-09-24 05:18] LABS: ALT (SGPT) 175 U/L (0-35); AST (SGOT) 121 U/L (14-36); Albumin 3.5 g/dl (3.5-5.0); Alkaline Phosphatase 160 U/L (38-126); Blood Urea Nitrogen 28 mg/dl (7-17); Carbon Dioxide 18 mmol/L (22-30); Chloride 98 mmol/L (98-107); Estimated Creatinine Clearance 8 ml/min; Glucose 194 mg/dl (70-99); Magnesium 1.6 mg/dl (1.6-2.3); Potassium 3.7 mmol/L (3.5-5.1); Sodium 132 mmol/L (135-145); Total Bilirubin 0.8 mg/dl (0.2-1.3); Total Protein 5.5 g/dl (6.3-8.2); eGFR 9.45
[2024-09-24 05:30] LABS: Vancomycin Random 19.1 ug/ml
[2024-09-24] MEDS: MAGNESIUM SULFATE 50 IV (05:55)
[2024-09-24] MEDS: PROTONIX IV 40 MG IV (07:24)
[2024-09-24] MEDS: NSS (PRESERVATIVE FREE) 10 ML IV (07:24)
--- NOTE | 2024-09-24 07:50 | W.PN.INTV ---
Today's Communication / Plan
Recommendations
Continue with heparin therapy, no bolus
Continue with broad-spectrum antibiotics, follow cultures
Await echocardiogram
maintain stress dose steroids
Wean pressors as able
Assessment
-
84-year-old female with complex medical history, end-stage renal disease on HD, history of renal cell cancer status post left nephrectomy, presents with mental status changes, hypotension. Admitted to ICU
Septic shock
Requiring pressors
Acute hypoxic respiratory insufficiency, requiring high flow
Did not tolerate BiPAP
Hypothermia
Leukocytosis
Acute transaminitis
Severe pulm hypertension, PA pressure 70
Normal biventricular function
Per echo 2022
Chronic atrial fibrillation
Right pleural effusion status post thoracentesis 09/22/2024
850 cc removed, transudate
Recent fall 4 weeks ago, right shoulder injury
History of multiple falls I know she has a history of recurrent GI bleed last 1 year ago but was just going to give 1 dose for now
Conditions present prior to admission
ESRD, HD 5 days a week
On midodrine
History of renal cell cancer, left nephrectomy 2019
Advanced Alzheimer's dementia
GERD
History of anemia
History of diverticular bleed 2023
History of sleep apnea, not on CPAP since weight loss
DNR, has been on palliative care
Plan/recommendations
At this time, patient remains critically ill requiring pressors despite IV fluids. End-stage renal disease with noted, limiting our ability to fluid resuscitate
Stress dose started 09/23
Chest x-ray 09/23/2024 with questionable left lower lobe pneumonia, atelectasis
Peripheral cyanosis noted on exam
Chest x-ray without any acute findings
Decreased breath sounds on exam
Doppler studies negative for bilateral DVT
Patient started on empiric heparin therapy 09/23 due to possibility of thromboembolic disease
Moving forward
Complex medical history as noted
Salient features are hypotension, hypoxia within normal chest x-ray
Differential includes sepsis, thromboembolic disease, RV failure
Echocardiogram pending
Continue with heparin therapy for now, no bolus
EKG 09/24 consistent with atrial fibrillation, nonspecific T wave changes
Hold off on head CT for now, patient is mentating appropriately
Hold off on CT chest imaging for now
Patient has received 2 L of fluid and remains hypotensive
Continue stress dose steroids although daughter states she has not been on steroids over the last year. Nephrectomy noted
No plans for HD today
Agree with empiric antibiotics. Currently on Zosyn/vancomycin
Family is realistic, daughter is aware of multiple comorbidities and poor prognosis overall
Right groin line manipulated and stitched. Now functional
Comfort is a priority as well
If no significant improvement in the next 24 to 48 hours, may need to transition to comfort. Family aware
Reviewed at length with critical care nursing, respiratory care
Reviewed with daughter, son at bedside
TCCT 31 min
Subjective Dataa
Subjective Data
Date of Service:
Date of Service: September 24, 2024
Subjective:
Patient remains critically ill. Agitated this morning, more lethargic. Remains on norepinephrine and vasopressin. Right groin line is kinked
Objective Data
Data Reviewed
Vital Signs / I&O / Oxygen:
Vital Signs
Temp Pulse Resp BP Pulse Ox
97.8 F 84 20 84/44 92
09/24/24 04:34 09/24/24 06:16 09/24/24 06:16 09/24/24 06:16 09/24/24 06:00
Intake and Output
09/23/24 09/24/24 09/25/24
06:59 06:59 06:59
Intake Total 1033.5 / 1033.5
Balance 1033.5 / 1033.5
SaO2 92
Nasal Cannula flow liters per 50
minute
Physical Exam
General: Comfortable (Agitated at times, on high flow)
HEENT: Normocephalic
Cardiovascular: S1-S2, Irregular Rhythm, Murmur (n) and Rub (n)
Respiratory: Wheeze (n), Crackles (n), Rhonchi (n) and Non-Labored Respirations
GI: Soft, Non Distended and Non Tender
Neurology: Lethargic (Spontaneously moves extremities)
Skin: Good Color (Mildly pallorous), Jaundice (n) and Bruising (Few scattered)
Labs/Micro/Reports
Lab Data
09/24/24 04:30
09/24/24 04:30
Laboratory Results
09/23/24 09/24/24
17:32 00:13
PT 15.4 H
INR 1.16
APTT 59.7 H > 200 H*
Microbiology
09/23/24 12:09 Nasal Swab Influenza Types A & B (MOISE) - Final
Negative for Influenza A & B, NAAT
Negative results must be combined with clinical observations
and patient history.
Nucleic Acid Amplification test (NAAT)performed on the
[employer] platform.
--- NOTE | 2024-09-24 08:23 | PTCARENOTE ---
pt received from previous rn- pt lethargic, opens eyes to name, moves all extremities, pt restless at times. pt forgetful and confused at baseline. levo, vaso and heparin gtts continue. pt remains on HFNC, sats in 90s. pt turned and repositioned,
oral care provided. son at bedside and updated. pt afib on monitor, hands and feet dusky, weak palpable pulses. all safety precautions in place.
--- NOTE | 2024-09-24 09:25 | PTCARENOTE ---
white and brown ports on right femoral line not flushing, Dr. Elena at bedside, repositioned lined, new dressing intact. all lumens flush with blood return. daughter at bedside and updated.
[2024-09-24 10:13] LABS: APTT 106.1 Sec (23.4-35.0)
[2024-09-24 11:25] LABS: Glucose - Point of Care 122 mg/dl (70-99)
--- NOTE | 2024-09-24 11:39 | W.PN.NEPH.PH ---
Today's Communication / Plan
-
observe
Assessment/Plan
-
Impression:
ESRD TTS status post 1 hour dialysis today at home
Hypotension
Rectal bleed
Anemia
Hyperphosphatemia
Secondary hyperparathyroidism
Hypertension
Dementia
History of renal cell carcinoma status post right nephrectomy
History of multiple joint replacements
Shock liver
Leukocytosis
Hypercarbia, hypoxemia
Plan:
Prognosis is grim. Discussed with length with her daughter today
she want to wait further
no HD today, will review with family tomorrow
She is DNR/DNI.
Hypotension on pressors to keep MAP>60
family do not wish any more aggressive measures , comfort is priority
d/w primary
Critical care time spent 31 minutes
-
-
Date of Service: September 24, 2024
CC / HPI / ROS
-
Chief Complaint:
ESRD
History of Present Illness:
hb stable 9.7, WBC increasing to 21
on presors for hypotension
no fever, peripheral cyanosis difficulty getting sats
on high flow O2 52% Fio2
Review of Systems:
no complaints but looks tired and can not talk much
Labs
-
Labs:
WBC 21.1 10^3/uL (4.8-10.8) H 09/24/24 04:30
RBC 3.39 10^6/uL (4.20-5.40) L 09/24/24 04:30
Hgb 9.7 g/dL (12.0-16.0) L 09/24/24 04:30
Hct 34.0 % (37.0-47.0) L 09/24/24 04:30
Plt Count 242 10^3/uL (130-400) 09/24/24 04:30
Sodium 132 mmol/L (135-145) L 09/24/24 04:30
Potassium 3.7 mmol/L (3.5-5.1) 09/24/24 04:30
Chloride 98 mmol/L (98-107) 09/24/24 04:30
Carbon Dioxide 18 mmol/L (22-30) L 09/24/24 04:30
BUN 28 mg/dl (7-17) H 09/24/24 04:30
Creatinine 4.4 mg/dL (0.6-1.0) H* 09/24/24 04:30
eGFR 9.45 09/24/24 04:30
Glucose 194 mg/dl (70-99) H 09/24/24 04:30
Calcium 8.0 mg/dl (8.4-10.2) L 09/24/24 04:30
Phosphorus 5.8 mg/dl (2.5-4.5) H 09/23/24 12:56
Albumin 3.5 g/dl (3.5-5.0) 09/24/24 04:30
Physical Exam
-
Vital Signs:
Vital Signs
Temp Pulse Resp BP Pulse Ox
97.7 F 98 16 100/76 95
09/24/24 08:00 09/24/24 10:30 09/24/24 10:30 09/24/24 10:30 09/24/24 08:14
Cardiovascular:: Regular rate and rhythm
Lung Excursion:: Abnormal (tachypenic, decreased BS, very shallow breathing)
Abdomen:: Nontender and Soft
Extremity Edema:: None: Bilateral:
Nuñez Catheter: No
Other Findings::
left UE edema noted from infltration
--- NOTE | 2024-09-24 11:50 | PTCARENOTE ---
pt remains drowsy, daughter at bedside. assists with turning in bed. remains on hfnc, in afib. pt able to say needing use of bed denise, pt with small bm. no further changes in assessment
--- NOTE | 2024-09-24 11:58 | CM ---
CM following re: discharge planning.
Discussed in Rounds, reviewed pt's chart, met with pt. Pt's daughter Adrienne Rivera and pt's son at bedside.
Pt is an 84 year old female, admitted with primary dx of Septic shock. per Rounds meeting, pt requiring pressors, requiring high flow 30L HFNC with FIO2 50%, continue supportive care.
per daughter, pt lives with 2SH, 2 steps to enter, has 10 supportive children. Per daughter pt ambulates with a cane, has home oxygen 2L NC at baseline. Pt is on home HD provided by daughter and managed by [facility]. per daughter,
pt was at [facility] last year. Pt's daughter made it very clear that neither pr no family accept SNF level of care. Pt's daughter requested only acute [facility] re[facility] if pt's qualifies.
PT and OT will evaluate the pt to determine a level of care at discharge.
PCP: Padmini Thompson.
Pharmacy: [facility]
D/C plan: uncertain at this time and will depend on pt's progress.
CM will follow with discharge plan updates as hospitalization progresses.
--- NOTE | 2024-09-24 13:14 | PHA.VAN.IN ---
Assessment
- Assessment
Renal Function: Patient has ESRD, on chronic Hemodialysis
Hemodialysis Schedule: TThSa
Maximum Temperature: 97.8
Minimum Temperature: 96.3
Concomitant Antimicrobials: piperacillin-tazobactam
- Previous Dosing Experience
Previous Regimen: dose by level- vancomycin 1000 mg
Date of Regimen: 03/23/21, 09/20/21
Patient's SCR is: Similar to previous dosing experience (4.3)
Plan
- Plan
Initial / Loading Dose: vancomycin 1500 mg x1
Maintenance Regimen: dose by level post dialysis
Pharmacokinetics Vancomycin I
- -
Patient Age: 84
Patient Sex: Female
Vancomycin Day #: 2
Indication: Other
Requesting Provider: Becky Bates
Height / Weight:
Height 5 ft 2 in
Actual Weight 54.2 kg
IBW in k.1
Adjusted BW in k.7
Pertinent Past Medical History: renal cell cancer post left nephrectomy
- Vital Signs / Lab Results
Temp Pulse Resp BP Pulse Ox
97.5 F 92 26 115/51 94
09/24/24 11:49 09/24/24 11:45 09/24/24 11:45 09/24/24 11:45 09/24/24 11:58
Lab Results - Hematology
09/23/24 09/23/24 09/24/24
12:09 17:32 04:30
WBC 15.6 H 16.9 H 21.1 H
Lab Results - Chemistry
09/23/24 09/23/24 09/24/24
12:09 12:56 04:30
BUN Cancelled 26 H 28 H
Creatinine Cancelled 4.3 H* 4.4 H*
Estimated Creat Clear Cancelled 8
Albumin Cancelled 3.9 3.5
09/23/24 09/23/24 09/23/24
12:09 15:54 19:32
Lactic Acid 4.1 H* 2.1 H 1.2
Microbiology Results
09/23/24 12:09 Blood Culture - Preliminary
Blood/Venous No Growth in 24 hours- Final report to follow
09/23/24 12:09 Blood Culture - Preliminary
Blood/Venous No Growth in 24 hours- Final report to follow
09/23/24 12:09 Influenza Types A & B (MOISE) - Final
Nasal Swab Negative for Influenza A & B, NAAT
Negative results must be combined with clinical observations
and patient history.
Nucleic Acid Amplification test (NAAT)performed on the
[employer] platform.
[2024-09-24] MEDS: NSS (PRESERVATIVE FREE) 0.25 ML IV (13:25)
[2024-09-24] MEDS: ATIVAN 0.5 MG IV ×2 (13:25→21:22)
--- NOTE | 2024-09-24 13:40 | W.PN.HOSP.TC ---
Today's Communication/Plan
-
Broad-spectrum IV antibiotics for now
Follow-up on the culture data
Wean oxygen as tolerated
Repeat chest x-ray in morning
Hemodialysis in the morning
Wean pressors as tolerated
Assessment / Plan
Assessment / Plan
#Septic shock/hypothermia unclear etiology
-Daughter has been holding Toprol XL 12.5 mg daily
-Patient on midodrine 2.5 mg twice daily as needed hypotension
-IV 1 L NSS bolus given in ER, IV Levophed drip and vasopressin. Also started on stress dose steroids.
-Midodrine 5 mg n given in ER
-IV vancomycin, IV Zosyn-bump in WBC noted. WBC uptrending secondary to steroids. If culture data remains negative and spiking fever may need ID input.
-Blood cultures preliminary negative. MRSA screen pending. Influenza COVID-negative.. Chest x-ray is negative for infiltrate. Pleural fluid cultures remain negative.
-ECHO pending
#Hypotension secondary to septic shock/volume depletion
BP 60/46
-Consult IR for central line placement
Hold metoprolol 12.5 mg daily
-IV Levophed drip
#Acute hypoxic respiratory failure secondary
Acute metabolic acidosis
-Patient is restless trying to pull off BiPAP family wants BiPAP removed and only high flow as they want comfort
-Improvement in FIO2
#Hx pulm HTN-Per echo 08/30/2022 pulmonary arterial pressure 65-70 mmHg
#Acute hypothermia 2/2 sepsis
Temp 95.5
-Continue Cherri hugger with parameters
#ESRD
On home dialysis 5 days a week
Patient not on urine producing
Creat 4.6
-Consult Dr. Oseguera Plan for HD tomm.
#Chronic atrial fibrillation
-toprol held due to hypotension
-started on hep gtt per icu
#Recent pleural effusion s/p thoracentesis
-transudate. 850cc removed.
#Hx renal cell carcinoma status post right nephrectomy
#Dementia-advanced
Anxiety
Continue memantine 7 mg daily, mirtazapine 15 mg at bedtime
#Acute transaminitis likely secondary to sepsis shock
AST 188, ALT 195, alk phos 160
-Hold statin. trend for now
Chronic diastolic heart failure
I/O, daily weights
No diuretics listed
2D echo 08/30/2022: EF 55 to 60%, no wall abnormalities, stage II diastolic dysfunction, severely dilated left atrium/right atrium mild mitral stenosis mild mitral regurg, moderate to severe TR pulmonary arterial pressure 65-70 mmHg
GERD
Continue IV Protonix [address] of p[address]
#Chronic anemia
Hgb 10.4-appears baseline
#History of diverticular bleed February 2024
That hemoglobin is 7.1 will transfuse 1 unit
DVT prophylaxis
Subcu heparin
DNR per daughter at bedside
Prognosis guarded
Discussed with neurology
Discussed with patient daughter at bedside in details
Total Critical Care Time 40 minutes. I was immediately available to the patient and staff. I personally examined, reviewed labs, diagnostic images/reports, interpretations, treatment plans, discussed patient care with other providers and family
or caregivers (if patient is unable to make decisions), entered orders as appropriate and documented the medical record.
Anticipated Discharge: > 48 hours
Subjective/Interval History
-
Date of Service: September 24, 2024
remains on HFNC-Fio2 decreased
ECHO pending
remains lethargic
Objective Data
-
Labs:
Laboratory Results
09/24/24 09/24/24 09/24/24
04:30 09:16 16:30
WBC 21.1 H
Hgb 9.7 L
Hct 34.0 L
Plt Count 242
APTT 106.1 H Pending
Sodium 132 L
Potassium 3.7
Chloride 98
Carbon Dioxide 18 L
BUN 28 H
Creatinine 4.4 H*
Glucose 194 H
Calcium 8.0 L
Total Bilirubin 0.8
AST 121 H
ALT 175 H
Alkaline Phosphatase 160 H
Vital Signs:
Vital Signs
Temp Pulse Resp BP Pulse Ox
97.5 F 92 26 115/51 94
09/24/24 11:49 09/24/24 11:45 09/24/24 11:45 09/24/24 11:45 09/24/24 11:58
I&O
09/23/24 09/24/24 09/25/24
06:59 06:59 06:59
Intake Total 1033.5 / 1094.8 391.0 / 391.0
Balance 1033.5 / 1094.8 391.0 / 391.0
Physical Exam
-
General: No Apparent Distress
HEENT: Oxygen (HFNC )
Respiratory: Rhonchi and Other (left chest wall catheter noted )
Cardiac: Regular Rhythm and S1/S2; Negative Murmur
GI: Soft, Nontender and Nondistended
Musculoskeletal: No Edema
Neuro: Awake and Nonfocal/Grossly Intact
Psych: Calm and Intact Judgement/Insight
--- NOTE | 2024-09-24 14:24 | PTCARENOTE ---
pt agitated and restless, daughter and Dr. Elena at bedside, ativan given as per order. pt resting more comfortably at this time. echo completed. weaning levo as tolerated.
--- NOTE | 2024-09-24 16:45 | PTCARENOTE ---
assessment unchanged. pt resting comfortably at this time. family remains at bedside and updated.
[2024-09-24 16:57] LABS: APTT > 200 Sec (23.4-35.0)
--- NOTE | 2024-09-24 17:51 | PTCARENOTE ---
Dr. Elena aware of ptt result. ordered to hold heparin gtt for 2 hours and restart at 500units/hr
--- NOTE | 2024-09-24 17:59 | PTCARENOTE ---
pt placed on 15L midflow, sats 97%. oral care provided. turned and repositioned.
[2024-09-24 18:00] LABS: Glucose - Point of Care 127 mg/dl (70-99)
--- NOTE | 2024-09-24 19:12 | PTCARENOTE ---
Assumed care of pt. approx 1900.
Remains on Norepi/Vasopressin --> see titration flowsheet for details.
Titrations made off of NIBP. Follows simple commands.
Family bedside, all questions answered and plan of care explained.
--- NOTE | 2024-09-24 20:22 | PTCARENOTE ---
PtMarko desatting, switched to F.
--- NOTE | 2024-09-24 23:41 | PTCARENOTE ---
No change in pt. assessment.
Remains on norepi/vasopressin.
Maintaining own airway, o2 therapy w/ HHF.
[2024-09-25] VITALS (22 sets, daily range): BP systolic 65–113; BP diastolic 48–92; BMI 21.8
[2024-09-25 00:04] LABS: Glucose - Point of Care 131 mg/dl (70-99)
[2024-09-25] MEDS: LEVOPHED 250 IV ×2 (01:49→10:49)
[2024-09-25] MEDS: ZOSYN 50 IV ×2 (01:49→14:10)
--- NOTE | 2024-09-25 03:37 | PTCARENOTE ---
No change in pt. assessment.
Pt. resting in bed, sleeping, Norepi being titrated as appropriate.
[2024-09-25 03:42] LABS: Hematocrit 31.2 % (37.0-47.0); Hemoglobin 9.2 g/dL (12.0-16.0); Mean Corp Hgb Conc. 29.5 g/dL (33.0-37.0); Mean Corpuscular Hgb 28.8 pg (27.0-31.0); Mean Corpuscular Volume 97.8 fL (81.0-99.0); Mean Platelet Volume 9.9 fL (7.4-10.4); Platelet Count 224 10^3/uL (130-400); Red Blood Cell Count 3.19 10^6/uL (4.20-5.40); Red Cell Dist. Width 17.2 % (11.5-14.5)
[2024-09-25 04:12] LABS: Vancomycin Random 16.1 ug/ml
[2024-09-25 04:19] LABS: ALT (SGPT) 137 U/L (0-35); AST (SGOT) 68 U/L (14-36); Albumin 3.7 g/dl (3.5-5.0); Alkaline Phosphatase 133 U/L (38-126); Blood Urea Nitrogen 34 mg/dl (7-17); Calcium 8.1 mg/dl (8.4-10.2); Carbon Dioxide 16 mmol/L (22-30); Chloride 97 mmol/L (98-107); Estimated Creatinine Clearance 7 ml/min; Glucose 189 mg/dl (70-99); Potassium 3.7 mmol/L (3.5-5.1); Sodium 130 mmol/L (135-145); Total Bilirubin 0.8 mg/dl (0.2-1.3); eGFR 7.91
[2024-09-25 06:17] LABS: Glucose - Point of Care 116 mg/dl (70-99)
[2024-09-25] MEDS: SOLU-CORTEF 50 MG IV ×2 (06:28→14:10)
--- NOTE | 2024-09-25 07:08 | W.PN.INTV ---
Today's Communication / Plan
Recommendations
Continue heparin therapy, no bolus
Continue broad-spectrum antibiotics
CT chest, PE protocol and head CT today
HD today
Long-term prognosis poor
Ongoing discussion regarding goals of care
Assessment
-
84-year-old female with complex medical history, end-stage renal disease on HD, history of renal cell cancer status post left nephrectomy, presents with mental status changes, hypotension. Admitted to ICU
Septic shock
Requiring pressors
Acute hypoxic respiratory insufficiency, requiring high flow
Did not tolerate BiPAP
Hypothermia
Leukocytosis
Acute transaminitis
Severe pulm hypertension, PA pressure 70
Normal biventricular function
Per echo 2022
Chronic atrial fibrillation
Right pleural effusion status post thoracentesis 09/22/2024
850 cc removed, transudate
Recent fall 4 weeks ago, right shoulder injury
History of multiple falls I know she has a history of recurrent GI bleed last 1 year ago but was just going to give 1 dose for now
Conditions present prior to admission
ESRD, HD 5 days a week
On midodrine
History of renal cell cancer, left nephrectomy 2019
Advanced Alzheimer's dementia
GERD
History of anemia
History of diverticular bleed 2023
History of sleep apnea, not on CPAP since weight loss
DNR, has been on palliative care
Plan/recommendations
At this time, patient remains critically ill requiring pressors despite IV fluids. End-stage renal disease with noted, limiting our ability to fluid resuscitate
Stress dose started 09/23
Peripheral cyanosis noted on exam
Chest x-ray without any acute findings, questionable left lower lobe atelectasis from 09/23
Decreased breath sounds on exam
Doppler studies negative for bilateral DVT
Patient started on empiric heparin therapy 09/23 due to possibility of thromboembolic disease
Moving forward
Complex medical history as noted
Salient features are hypotension, hypoxia within normal chest x-ray
Differential includes sepsis, thromboembolic disease, RV failure
Echocardiogram 09/24, EF 50%, normal RV size and function, not fully evaluated. Moderate MR, PA pressure 68. Suboptimal study regarding RV
Continue with heparin therapy for now, no bolus
EKG 09/24 consistent with atrial fibrillation, nonspecific T wave changes
Will obtain CT angiogram and head CT today
Patient has received 2 L of fluid and remains hypotensive
Continue stress dose steroids although daughter states she has not been on steroids over the last year. Nephrectomy noted
Plans for HD today
Agree with empiric antibiotics. Currently on Zosyn/vancomycin
Cannot rule out sepsis
Blood cultures 09/23 negative to date, influenza negative
Family is realistic, daughter is aware of multiple comorbidities and poor prognosis overall
Right groin line in since 09/23
Patient with extremely poor access
Options limited at this time
Comfort is a priority as well
If no significant improvement in the next 24 to 48 hours, may need to transition to comfort. Family aware
Reviewed at length with critical care nursing, respiratory care
Reviewed with son at bedside today
Reviewed with daughter yesterday p.m.
TCCT 31 min
Subjective Dataa
Subjective Data
Date of Service:
Date of Service: September 25, 2024
Subjective:
Patient remains critically ill. Remains on norepinephrine. Intermittently vasopressin. Lethargic this morning, intermittently agitated. Son at bedside. Remains on heparin drip. No evidence of active bleeding. Remains on high flow
Objective Data
Data Reviewed
Vital Signs / I&O / Oxygen:
Vital Signs
Temp Pulse Resp BP Pulse Ox
97.3 F 103 23 99/86 97
09/25/24 03:30 09/25/24 05:15 09/25/24 05:15 09/25/24 05:00 09/25/24 05:25
Intake and Output
09/24/24 09/25/24 09/26/24
06:59 06:59 06:59
Intake Total 1033.5 / 1094.8 1298.0 / 1298.0
Output Total 0 / 0
Balance 1033.5 / 1094.8 1298.0 / 1298.0
SaO2 97
Nasal Cannula flow liters per 40
minute
Physical Exam
General: Comfortable (Lethargic, on high flow) and Other (Right femoral line intact)
HEENT: Normocephalic
Cardiovascular: S1-S2, Irregular Rhythm, Murmur (n) and Rub (n)
Respiratory: Wheeze (n), Crackles (n), Rhonchi (n), Non-Labored Respirations and Other (Poor inspiratory effort)
GI: Soft, Non Distended and Non Tender
Neurology: Lethargic (Spontaneously moves extremities, moves all extremities)
Skin: Good Color (Mildly pallorous), Cyanosis (Peripheral cyanosis), Jaundice (n) and Bruising (Few scattered)
Labs/Micro/Reports
Lab Data
09/25/24 03:29
09/25/24 03:29
Laboratory Results
09/24/24 09/24/24 09/25/24
09:16 16:18 01:08
APTT 106.1 H > 200 H* 65.0 H
Microbiology
09/23/24 12:09 Blood/Venous Blood Culture - Preliminary
No Growth in 24 hours- Final report to follow
09/23/24 12:09 Blood/Venous Blood Culture - Preliminary
No Growth in 24 hours- Final report to follow
09/23/24 12:09 Nasal Swab Influenza Types A & B (MOISE) - Final
Negative for Influenza A & B, NAAT
Negative results must be combined with clinical observations
and patient history.
Nucleic Acid Amplification test (NAAT)performed on the
[employer] platform.
--- NOTE | 2024-09-25 08:05 | PTCARENOTE ---
0700 patient in bed . On high flow 40/80%. Levophed at 6 adjusted to 8 for MAP 56; Vesopressin 0.04; PTT 72; Heparin adjusted from 6/600 to 7/700 per protocol Next PTT at 1400; CT head and chest order
--- NOTE | 2024-09-25 08:37 | PHA.VAN.FU ---
Vancomycin Assessment / Plan
- Assessment
Hemodialysis Schedule: TThSa
WBC's are: Stable
In the past 24 hrs, patient has been: Afebrile
Concomitant Antimicrobials: Piperacilin-tazobactam
- Assessment - Therapeutic Drug Monitoring
Random Level: R = 16.2 ~ 36hrs post Vanc 1500mg
- Dosing Plan
Continue: Dose by level PRN post HD
Dosing by Level: Hold off on dosing today (Pt's family may transfer her to hospice today.)
- Monitoring Plan
Random Level: 2/2 with AM labs
- Follow Up
Pharmacy will continue to follow.
Vancomycin Follow UP
- -
Patient Age: 84
Patient Sex: Female
Vancomycin Day #: 3
Indication: Other
Requesting Provider: Becky Bates
Height / Weight:
Height 5 ft 2 in
Actual Weight 54 kg
IBW in k.1
Adjusted BW in k.7
Pertinent Past Medical History: renal cell cancer post left nephrectomy
- Vital Signs / Lab Results
Temp Pulse Resp BP Pulse Ox
97.5 F 103 23 99/86 97
09/25/24 07:28 09/25/24 05:15 09/25/24 05:15 09/25/24 05:00 09/25/24 05:25
Lab Results - Hematology
09/23/24 09/23/24 09/24/24
12:09 17:32 04:30
WBC 15.6 H 16.9 H 21.1 H
09/25/24
03:29
WBC 21.0 H
Lab Results - Chemistry
09/23/24 09/23/24 09/24/24
12:09 12:56 04:30
BUN Cancelled 26 H 28 H
Creatinine Cancelled 4.3 H* 4.4 H*
Estimated Creat Clear Cancelled 8
Albumin Cancelled 3.9 3.5
09/25/24
03:29
BUN 34 H
Creatinine 5.1 H*
Estimated Creat Clear 7
Albumin 3.7
09/23/24 09/23/24 09/23/24
12:09 15:54 19:32
Lactic Acid 4.1 H* 2.1 H 1.2
Microbiology Results
09/23/24 19:26 MRSA Screen - Final
Nose No Methicillin Resistant Staphylococcus aureus isolated.
09/23/24 12:09 Blood Culture - Preliminary
Blood/Venous No Growth in 24 hours- Final report to follow
09/23/24 12:09 Blood Culture - Preliminary
Blood/Venous No Growth in 24 hours- Final report to follow
09/23/24 12:09 Influenza Types A & B (MOISE) - Final
Nasal Swab Negative for Influenza A & B, NAAT
Negative results must be combined with clinical observations
and patient history.
Nucleic Acid Amplification test (NAAT)performed on the
[employer] platform.
Therapeutic Drug Monitoring
Random Vancomycin 16.1 ug/ml 09/25/24 03:29
[2024-09-25] MEDS: PITRESSIN 100 IV (10:49)
[2024-09-25] MEDS: NSS (PRESERVATIVE FREE) 10 ML IV (10:51)
[2024-09-25] MEDS: PROTONIX IV 40 MG IV (10:53)
--- NOTE | 2024-09-25 10:57 | PTCARENOTE ---
On Mid-flow 15 POX dropped 65%. Pt placed in addition to mid flow +NRM 15L. POX 85% RT made aware planning to go back on high flow capillary refill > 2 seconds pt less responsive than this am . Afib 116 BP 99//75 RR 12 Rectal temp 96.1 Levophed at 8
Vasopressing 0.04 Heparing at 7/700; CT head and chest pending
--- NOTE | 2024-09-25 11:18 | W.PN.HOSP.TC ---
Addendum entered and electronically signed by Vinnie Medellin MD 09/25/24 14:45:
Discussed with pulmonary and hospice. Patient family has decided to transition patient to home hospice. They do not want any further medical care. Hospice recommending medication morphine and Ativan to be sent to the pharmacy. Hospice will admit
patient. Equipment being managed by [facility]. Discussed with pulmonary. Discharged home on hospice.
Original Note:
Today's Communication/Plan
-
IV abx
CT chest/CT head pending
HD per nephro
wean o2
Assessment / Plan
Assessment / Plan
General: confused, moving all 4 extremity
HEENT: midflow
Respiratory: Rhonchi and Other (left chest wall catheter noted )
Cardiac: Regular Rhythm and S1/S2; Negative Murmur
GI: Soft, Nontender and Nondistended
Musculoskeletal: No Edema, R fem central line
Neuro: Awake and remains confused Nonfocal/Grossly Intact
Psych: Calm and agitated at times,
#Septic shock/hypothermia unclear etiology
-Daughter has been holding Toprol XL 12.5 mg daily
-Patient on midodrine 2.5 mg twice daily as needed hypotension
-IV 1 L NSS bolus given in ER, IV Levophed drip and vasopressin. Also started on stress dose steroids.
-Midodrine 5 mg n given in ER
-IV vancomycin, IV Zosyn-bump in WBC noted. WBC uptrending secondary to steroids. If culture data remains negative and spiking fever may need ID input.
-Blood cultures preliminary negative. MRSA screen pending. Influenza COVID-negative.. Chest x-ray is negative for infiltrate. Pleural fluid cultures remain negative.
-CT chest is pending.
-ECHO EF of 50 to 55%. Normal regional wall motion. Diastolic function indeterminate. Pulmonary hypertension remains severe.
#Hypotension secondary to septic shock/volume depletion
-Consult IR for central line placement
Hold metoprolol 12.5 mg daily
-IV Levophed drip and vasporessing
#Acute hypoxic respiratory failure secondary likely secondary to severe pulmonary hypertension/volume overload versus suspected thromboembolic disease
Acute metabolic acidosis
-Patient is restless trying to pull off BiPAP family wants BiPAP removed and only high flow as they want comfort
-Off high flow on mid flow cannula. CT chest is pending. On heparin drip.
#Hx pulm HTN-Per echo 08/30/2022 pulmonary arterial pressure 65-70 mmHg
#Acute hypothermia 2/2 sepsis
Temp 95.5
-Continue Cherri hugger with parameters
#ESRD
On home dialysis 5 days a week
Patient not on urine producing
Creat 4.6
-Consult Dr. Ana Rosa Wesley nephrology. Will be difficult with 2 pressors.
#Chronic atrial fibrillation
-toprol held due to hypotension
-started on hep gtt per icu
#Recent pleural effusion s/p thoracentesis
-transudate. 850cc removed.
#Hx renal cell carcinoma status post right nephrectomy
#Dementia-advanced
Anxiety
Continue memantine 7 mg daily, mirtazapine 15 mg at bedtime
#Acute transaminitis likely secondary to sepsis shock
AST 188, ALT 195, alk phos 160
-Hold statin. trend for now
Chronic diastolic heart failure
I/O, daily weights
GERD
Continue IV Protonix [address] of p[address]o.
#Chronic anemia
Repeat H&H. No luminal bleeding noted so far.
DVT prophylaxis
Heparin drip
DNR per daughter at bedside
Prognosis guarded
Discussed with patient's son at bedside in details.
Total Critical Care Time 39 minutes. I was immediately available to the patient and staff. I personally examined, reviewed labs, diagnostic images/reports, interpretations, treatment plans, discussed patient care with other providers and family
or caregivers (if patient is unable to make decisions), entered orders as appropriate and documented the medical record.
Anticipated Discharge: > 48 hours
Subjective/Interval History
-
Date of Service: September 25, 2024
Remains confused
On med floor
Remains on Levophed and vasopressin
Objective Data
-
Labs:
Laboratory Results
09/25/24 09/25/24 09/25/24
01:08 03:29 06:20
WBC 21.0 H
Hgb 9.2 L
Hct 31.2 L
Plt Count 224
APTT 65.0 H 72.0 H
Sodium 130 L
Potassium 3.7
Chloride 97 L
Carbon Dioxide 16 L
BUN 34 H
Creatinine 5.1 H*
Glucose 189 H
Calcium 8.1 L
Total Bilirubin 0.8
AST 68 H
ALT 137 H
Alkaline Phosphatase 133 H
09/25/24
14:00
WBC
Hgb
Hct
Plt Count
APTT Pending
Sodium
Potassium
Chloride
Carbon Dioxide
BUN
Creatinine
Glucose
Calcium
Total Bilirubin
AST
ALT
Alkaline Phosphatase
Vital Signs:
Vital Signs
Temp Pulse Resp BP Pulse Ox
97.5 F 103 23 95/80 88
09/25/24 07:28 09/25/24 09:45 09/25/24 09:30 09/25/24 09:30 09/25/24 09:15
I&O
09/24/24 09/25/24 09/26/24
06:59 06:59 06:59
Intake Total 1033.5 / 1094.8 1298.0 / 1298.0
Output Total 0 / 0
Balance 1033.5 / 1094.8 1298.0 / 1298.0
--- NOTE | 2024-09-25 11:43 | W.PN.NEPH.PH ---
Today's Communication / Plan
-
no plan of HD
Assessment/Plan
-
Impression:
ESRD TTS status post 1 hour dialysis today at home
Hypotension
Rectal bleed
Anemia
Hyperphosphatemia
Secondary hyperparathyroidism
Hypertension
Dementia
History of renal cell carcinoma status post right nephrectomy
History of multiple joint replacements
Shock liver
Leukocytosis
Hypercarbia, hypoxemia
Plan:
Prognosis is grim. Discussed with her daughter today
she want to wait on CT chest results
no current plan of HD
family likely move towards comfort care
Hypotension on pressors to keep MAP>60
Critical care time spent 31 minutes
-
-
Date of Service: September 25, 2024
CC / HPI / ROS
-
Chief Complaint:
ESRD
History of Present Illness:
hb stable 9.7, WBC up at 21
on presors for hypotension
no fever, peripheral cyanosis difficulty getting sats
Review of Systems:
pt in mild resp distress on mid flow
Labs
-
Labs:
WBC 21.0 10^3/uL (4.8-10.8) H 09/25/24 03:29
RBC 3.19 10^6/uL (4.20-5.40) L 09/25/24 03:29
Plt Count 224 10^3/uL (130-400) 09/25/24 03:29
Sodium 130 mmol/L (135-145) L 09/25/24 03:29
Potassium 3.7 mmol/L (3.5-5.1) 09/25/24 03:29
Chloride 97 mmol/L (98-107) L 09/25/24 03:29
Carbon Dioxide 16 mmol/L (22-30) L 09/25/24 03:29
BUN 34 mg/dl (7-17) H 09/25/24 03:29
Creatinine 5.1 mg/dL (0.6-1.0) H* 09/25/24 03:29
eGFR 7.91 09/25/24 03:29
Glucose 189 mg/dl (70-99) H 09/25/24 03:29
Calcium 8.1 mg/dl (8.4-10.2) L 09/25/24 03:29
Phosphorus 5.8 mg/dl (2.5-4.5) H 09/23/24 12:56
Albumin 3.7 g/dl (3.5-5.0) 09/25/24 03:29
Physical Exam
-
Vital Signs:
Vital Signs
Temp Pulse Resp BP Pulse Ox
97.5 F 103 23 95/80 88
09/25/24 07:28 09/25/24 09:45 09/25/24 09:30 09/25/24 09:30 09/25/24 09:15
Cardiovascular:: Regular rate and rhythm (tachy)
Lung Excursion:: Abnormal (very shallow mouth breathing)
Abdomen:: Nontender and Soft
Extremity Edema:: None: Bilateral: (trace)
Nuñez Catheter: No
[2024-09-25 12:35] LABS: Glucose - Point of Care 87 mg/dl (70-99)
--- NOTE | 2024-09-25 14:41 | W.PN.UPDATE ---
Update Note
Progress Note Update
Reviewed findings with family including daughter
Head CT without acute findings. Age-related changes
CT chest without evidence of pulm embolism. Pulmonary artery has significant enlargement, larger than adjacent ascending thoracic aorta, 4.3 cm
After reviewing these results, family, daughter has requested to take patient home. They understand that may be imminent and feels strongly about taking her home as opposed to keeping her in the hospital
With this in mind, I contacted hospice nurse. Hospice team will be visiting family in the a.m. to be admitted to hospice
Patient already known to palliative care team, Dr. Ruiz
Hospital bed already present at home, concentrator already present at home
Medications will be sent for hospice by primary service including morphine 20 mg/mL oral concentrate, administer 5 mg which is 0.25 ml every 3 hours as needed for dyspnea, Ativan 2 mg/mL concentrate to administer 0.5 (0.25ml) mg every 4 hours as
needed.
Daughter is a nurse who has been taking care of patient including hemodialysis needs, she is comfortable with the above. Family again has reiterated primary goal to take patient home.
Also coordinated with case management transportation by ambulance to take home patient today.
Maintain right femoral line in place with pressors.
Will transition pressors over to peripheral line as able and continue until patient arrives home as able
Plan to remove femoral line when transportation and above is all set up
Daughter and family is aware of the risk of loss of pulse, respiratory/cardiac arrest en route to home. Appropriate [id number] DNR form was signed by myself with daughter and family aware. They again reiterated goal to take patient home
Coordinated above with family, case management, hospice nurse, critical care nursing, primary service
--- NOTE | 2024-09-25 14:43 | W.DCSUMMARY ---
Discharge Summary
Discharge Data
Date of Admission: 09/23/24
Date of Discharge: 09/25/24
-
Pending Results: No
Hospital Course
84-year-old female past medical history of ESRD on hemodialysis, pulmonary hypertension, chronic atrial fibrillation, recurrent pleural effusion, history of renal cell carcinoma, dementia, anxiety chronic HFpEF, chronic anemia who is presenting from
home with hypotension and lethargy. Patient was found to be in septic shock. Patient was started on broad-spectrum antibiotics. Patient received IV fluid resuscitation. Blood pressure was soft and thus was also started on Levophed. Vasopressin
was added. Blood pressure was soft persistently and stress dose steroids were added. Blood cultures preliminary negative. Influenza and COVID was negative. Patient was initially started on heparin infusion as concern for thromboembolic disease
per assembly line worker. Echocardiogram was performed with EF of 50 to 55%. Normal regional wall motion. Diastolic function indeterminate. Pulmonary hypertension remains severe. Patient in severe acute hypoxic respiratory failure. Initially patient
was placed on BiPAP which was removed to high flow for comfort. FiO2 on high flow was slowly weaned down to mid flow. Patient continues to remain confused. Underwent CT chest which showed severe pulmonary hypertension with increase in size of the
pulmonary artery and recurrence of pleural effusions and multiple other pathology. CT head was negative for acute stroke. Patient continued to remain on 2 pressors with hypotension and tachycardia. Continue to remain confused and remained on mid
flow. Was not safe to have any oral intake. Hemodialysis was deferred as prognosis was grim per Nephrology. Patient would have been at increased risk for cardiopulmonary arrest if on hemodialysis as severe hypotension on 2 pressors. Above
findings were discussed with patient and family who decided to transition patient to hospice. They want to take patient home on hospice. [facility] was consulted. They have agreeable to admit patient and patient will be discharged to home
hospice. Morphine and Ativan were prescribed for hospice.
Discharge Plan
-
Patient Disposition: Home with Hospice
Discharge Diagnosis/Procedures: Septic shock/hypothermia unclear etiology
Hypotension secondary to septic shock/volume depletion
Severe pulmonary hypertension
Acute hypoxic respiratory failure secondary likely secondary to severe pulmonary hypertension/volume overload
Acute hypothermia 2/2 sepsis
Other Services: Hospice
Referrals:
Padmini Thompson MD [Family Provider] -
Prescriptions:
New
morphine concentrate 100 mg/5 mL (20 mg/mL) Solution
5 mg PO Q3HPRN PRN (Reason: moderate pain and/or dyspnea) Qty: 15 0RF
Rx Instructions:
5mg or 0.25mL every 3 hours as needed
lorazepam 2 mg/mL Concentrate
0.5 mg PO Q4HPRN PRN (Reason: anxiety or restlessness) Qty: 20 0RF
Rx Instructions:
0.5mg every 4 hours as needed
Discontinued
atorvastatin 20 MG tablet
20 mg PO HS
pantoprazole 40 MG tablet,delayed release (DR/EC)
40 mg PO DAILY
acetaminophen [Tylenol Extra Strength] 500 mg Tablet
1,000 mg PO BIDPRN PRN (Reason: mild pain)
mirtazapine 15 mg Tablet
15 mg PO HS
cholecalciferol (vitamin D3) 50 mcg (2,000 unit) Tablet
50 mcg PO HS
midodrine 2.5 mg Tablet
2.5 mg PO BIDPRN PRN (Reason: LO BLOOD PRESSURE)
melatonin 5 mg Tablet
5 mg PO HSPRN PRN (Reason: insomnia)
memantine 7 mg Capsule,Sprinkle,Er 24hr
7 mg PO DAILY
metoprolol succinate [Toprol XL] 25 mg tablet extended release 24 hr
12.5 mg PO DAILYPRN PRN (Reason: tachycardia)
Discharge Orders:
Discharge Patient (As Directed); Ordered 09/25/24
Ordered By: Vinnie Medellin
Discharge Date and Time
Discharge Date/Time: 09/25/24 17:12
Print Language: DANISH
--- NOTE | 2024-09-25 14:53 | W.[place]-PDMP ---
[place]-PD[place]
-
Checked the [place]- Prescription Drug Monitoring Program website, no red flags identified; safe to proceed with prescription.
--- NOTE | 2024-09-25 16:29 | CM ---
Pt is being placed on hospice with [facility] at home. Family requesting discharge home today; ambulance [facility] and transport forms completed and sent to ICU Pattern Layout Worker, Janice.
Referral placed in [facility] for [facility] hospice.
Plan: Discharge to home with [facility] hospice
--- NOTE | 2024-09-25 17:11 | HOSPNOTE ---
Notified by doctor that patient and family would like to go home today with hospice services. Reviewed that the earliest hospice could admit would be tomorrow morning. Attending spoke to family and they wish to take patient home today and are okay
with hospice services starting tomorrow. Local fill of morphine and Ativan was arranged and son was able to pick this up at [facility]. Transport home via ambulance is being arranged. Family is aware that patient could pass while in route to
home and if that does happen then the ambulance would bring patient back to the hospital for pronouncement. Reviewed it patient does surive home and passes before hospice arrives in the am, they are to call the hospice nurse bone char puller via the hospital
icicle machine operator and hospice will assist with process. This RN explained the above to patients daughter who verbalized understanding and agreement. Emotional support provided.
--- NOTE | 2024-09-25 17:17 | PTCARENOTE ---
17:00 patient d/c to home on hospice care. RT Femoral line removed by IV team nurse, dressing applied, before pt left dressing dry and intact. Levophed and Vasopressin Turned turned off. RT FA peripheral line removed pt transfer via stretcher via
ambulance services
== END 2024-09-25 17:12 | disposition hospice, home (50) | DRG 871 ==
LOC: ICU 15:24
PROVIDERS: Clinical Nurse Specialist Family Health; Physician Assistant; Radiology Vascular & Interventional Radiology; ADMITTING PHYSICIAN Student in an Organized Health Care Education/Training Program; ATTENDING PHYSICIAN Hospitalist; CONSULT PHYSICIAN Internal Medicine Critical Care Medicine; CONSULT PHYSICIAN Specialist; EMERGENCY PHYSICIAN Emergency Medicine; FAMILY PHYSICIAN Family Medicine
PROC: 06HY33Z Insertion of Infusion Device into Lower Vein, Percutaneous Approach (ICD-10-PCS; 2024-09-23)
DX: A41.9 Sepsis, unspecified organism (principal); J96.01 Acute respiratory failure with hypoxia; N18.6 End stage renal disease; J96.02 Acute respiratory failure with hypercapnia; R65.21 Severe sepsis with septic shock; K72.00 Acute and subacute hepatic failure without coma; F02.C18 Dementia in other diseases classified elsewhere, severe, with other behavioral disturbance; F02.C11 Dementia in other diseases classified elsewhere, severe, with agitation; I50.32 Chronic diastolic (congestive) heart failure; I48.20 Chronic atrial fibrillation, unspecified; I13.2 Hypertensive heart and chronic kidney disease with heart failure and with stage 5 chronic kidney disease, or end stage renal disease; F02.C3 Dementia in other diseases classified elsewhere, severe, with mood disturbance; F02.C4 Dementia in other diseases classified elsewhere, severe, with anxiety; Z99.2 Dependence on renal dialysis; D50.9 Iron deficiency anemia, unspecified; G30.9 Alzheimer's disease, unspecified; G47.00 Insomnia, unspecified; Z85.528 Personal history of other malignant neoplasm of kidney; I27.20 Pulmonary hypertension, unspecified; E86.9 Volume depletion, unspecified; I95.89 Other hypotension; E83.39 Other disorders of phosphorus metabolism; F32.A Depression, unspecified; G47.30 Sleep apnea, unspecified; K21.9 Gastro-esophageal reflux disease without esophagitis; Z51.5 Encounter for palliative care; Z66 Do not resuscitate
CPT/HCPCS: 36556; 70450; 71045; 71275; 76937; 77001; 80053; 80202; 82805; 82962; 83605; 83735; 84100; 85025; 85027; 85610; 85730; 87040; 87070; 87502; 87811; 93005; 93306; 93970; 94660; 96361; 96365; 99285; Q9967